=== PATIENT | female | born 1930 | race Hispanic/Latino ===

== ENCOUNTER 2017-05-15 14:36 | Emergency (ER) | payer MEDICARE ==
[2017-05-15 14:37] VITALS: PULSE 150
[2017-05-15 14:53] VITALS: TEMP 98.3; O2SAT 98; BMI 24.9
--- NOTE | 2017-05-15 15:14 | ED PDOC ---
Arrival/HPI - General Chief Complaint: GI Problem Time Seen by Provider: 05/15/17 14:46 Historian: Patient - History of Present Illness Narrative History of Present Illness (Text): 05/15/17 15:11 An 86 year old female, whose past medical history includes CAD w/ 3 cardiac stents, CABG, TIA, kidney stones, one renal stent, gall stones, and osteoporosis , presents to the emergency department with 6 day duration of nausea and vomiting with one episode of diarrhea 6 days ago. The patient states that she is currently asymptomatic. The patient denies fevers, chills, headache, dizziness, chest pain, shortness of breath, dyspnea on exertion, cough, sore throat, back pain, neck pain, urinary/bowel changes, trauma/injury, or any other complaints. PMD: Dr. Rodriguez Time/Duration: 1 week Symptom Onset: Sudden Symptom Course: Unchanged Activities at Onset: Rest, Light Context: Home Past Medical History - Provider Review Nursing Documentation Reviewed: Yes - Infectious Disease Hx of Infectious Diseases: None - Tetanus Immunization Tetanus Immunization: Unknown - Cardiac Hx Cardiac Disorders: Yes (TRIPLE BYPASS,CAROTID STENOSIS,CAD) Hx ID: Yes Hx Hypertension: Yes Other/Comment: Pacemaker/Defib - Pulmonary Hx Respiratory Disorders: Yes Hx Bronchitis: Yes - Neurological Hx Transient Ischemic Attacks (TIA): Yes - HEENT Hx HEENT Disorder: Yes Hx Cataracts: Yes (WITH LENS IMPLANT) - Renal Hx Kidney Stones: Yes - Endocrine/Metabolic Hx Endocrine Disorders: No - Hematological/Oncological Hx Blood Transfusions: No Hx Blood Transfusion Reaction: No - Integumentary Hx Dermatological Disorder: Yes Hx Melanoma: Yes (NOSE WITH SKIN GRAFT AND CHEEKS AND FOREHEAD SKIN CA) - Musculoskeletal/Rheumatological Hx Musculoskeletal Disorders: Yes Hx Osteoporosis: Yes - Gastrointestinal Hx Gastrointestinal Disorders: Yes Hx Gall Bladder Disease: Yes (GALLSTONES) - Genitourinary/Gynecological Other/Comment: stent in the kidney - Psychiatric Hx Psychophysiologic Disorder: No Hx Substance Use: No - Past Surgical History Past Surgical History: Non-Contributing - Surgical History Hx Coronary Stent: Yes (x3) Other/Comment: pacemaker/defib, kidney stent - Anesthesia Hx Anesthesia: Yes - Suicidal Assessment Feels Threatened In Home Enviroment: No Family/Social History - Physician Review Nursing Documentation Reviewed: Yes Family/Social History: No Known Family HX Smoking Status: Former Smoker Hx Alcohol Use: No Hx Substance Use: No Hx Substance Use Treatment: No Allergies/Home Meds Allergies/Adverse Reactions: Allergies heparin Allergy (Verified 05/15/17 14:44) vaginal bleed, chills Home Medications: Home Meds Medication Instructions Recorded Confirmed Aspirin [Ecotrin] 81 mg PO DAILY 06/07/17 06/07/17 Clopidogrel [Plavix] 75 mg PO DAILY 06/07/17 06/07/17 Ezetimibe [Zetia] 10 mg PO DAILY 06/07/17 06/07/17 Isosorbide Mononitrate [Imdur] 60 mg PO DAILY 06/07/17 06/07/17 Losartan Potassium 50 mg PO DAILY 06/07/17 06/07/17 Metoprolol Tartrate [Lopressor] 25 mg PO TID 06/07/17 06/07/17 Simvastatin [Zocor] 40 mg PO DAILY 06/07/17 06/07/17 Ursodiol [Actigall] 300 mg PO BID 06/07/17 06/07/17 Review of Systems - Physician Review All systems were reviewed & negative as marked: Yes - Review of Systems Constitutional: absent: Fevers, Night Sweats ENT: absent: Sore Throat Respiratory: absent: SOB, Cough Cardiovascular: absent: Chest Pain, ALLEN Gastrointestinal: Abdominal Pain, Diarrhea, Nausea, Vomiting. absent: Stool Changes Genitourinary Female: absent: Urine Output Changes Musculoskeletal: absent: Back Pain, Neck Pain Neurological: absent: Headache, Dizziness Physical Exam Vital Signs Reviewed: Yes Vital Signs Temp Pulse Resp BP Pulse Ox 05/15/17 17:44 76 18 106/49 L 98 05/15/17 14:42 98.3 F 84 17 122/65 98 Temperature: Afebrile Blood Pressure: Normal Pulse: Regular Respiratory Rate: Normal Appearance: Positive for: Well-Appearing, Non-Toxic, Comfortable Pain Distress: None Mental Status: Positive for: Alert and Oriented X 3 - Systems Exam Head: Present: Atraumatic, Normocephalic Pupils: Present: PERRL Extroacular Muscles: Present: EOMI Conjunctiva: Present: Normal Mouth: Present: Moist Mucous Membranes Neck: Present: Normal Range of Motion Respiratory/Chest: Present: Clear to Auscultation, Good Air Exchange. No: Respiratory Distress, Accessory Muscle Use Cardiovascular: Present: Regular Rate and Rhythm, Normal S1, S2. No: Murmurs Abdomen: Present: Tenderness (Epigastric tenderness). No: Normal Bowel Sounds ( Increased bowel sounds) Back: Present: Normal Inspection Upper Extremity: Present: Normal Inspection. No: Cyanosis, Edema Lower Extremity: Present: Normal Inspection. No: Edema Neurological: Present: GCS=15, CN II-XII Intact, Speech Normal Skin: Present: Warm, Dry, Normal Color. No: Rashes Psychiatric: Present: Alert, Oriented x 3, Normal Insight, Normal Concentration Medical Decision Making ED Course and Treatment: 05/15/17 15:14 Impression: An 86 year old female presents to the emergency department with 6 day duration epigastric abdominal pain, nausea, vomiting, and one episode of diarrhea. Plan: -- Abdomen/ Pelvis CT -- EKG -- Labs -- Zofran and Protonix -- Reassess and disposition Prior Visits: Notes and results from previous visits were reviewed. On 05/31/16 patient came in complaining of back pain. Patient was discharged home and advised to follow up with her PMD. Progress Notes: EKG: Ordered, reviewed, and independently interpreted the EKG. Rate : 85 BPM Rhythm : NSR Interpretation : LBBB. RBBB, ST normal, T- waves normal. CT Abdomen and Pelvis without intravenous contrast Dictator : DR. Lou, Júnior BRADLEY Report Date : 05/15/2017 16:36:27 IMPRESSION: No acute findings related to/accounting for the clinical presentation. Cholelithiasis without CT evidence of acute cholecystitis. No significant interval change compared to the prior examination(s). 05/15/17 17:20: Patient tolerating oral drink/food. - Lab Interpretations Lab Results: 05/15/17 16:05 05/15/17 16:05 Lab Results 05/15/17 16:05: Sodium 143, Potassium 4.2, Chloride 106, Carbon Dioxide 27, Anion Gap 14, BUN 26 H, Creatinine 1.0, Est GFR ( Amer) > 60, Est GFR ( Non-Af Amer) 52, Random Glucose 119 H, Calcium 9.0, Total Bilirubin 0.9, AST 32 , ALT 28, Alkaline Phosphatase 69, Troponin I 0.02, Total Protein 7.0, Albumin 4.1, Globulin 2.9, Albumin/Globulin Ratio 1.4, Lipase 58 05/15/17 16:05: PT 12.3, INR 1.13 H, APTT 27.1 05/15/17 16:05: WBC 2.5 L* D, RBC 3.92, Hgb 11.4 L, Hct 35.3 L, MCV 90.1, MCH 29.1, MCHC 32.3, RDW 13.4, Plt Count 151, MPV 10.9, Gran % 68.4 H, Lymph % (Auto ) 14.2 L, [place] % (Auto) 15.4 H, Eos % (Auto) 1.6, Baso % (Auto) 0.4, Gran # 1.73 , Lymph # 0.4 L, [place] # 0.4, Eos # 0.0, Baso # 0.01 I have reviewed the lab results: Yes - RAD Interpretation Radiology Orders: 05/15/17 15:11 ABD & PELVIS W/O PO OR IV CONT [CT] Stat - EKG Interpretation Interpreted by ED Physician: Yes Type: 12 lead EKG - Medication Orders Current Medication Orders: Discontinued Medications Ondansetron HCl (Zofran Inj) 4 mg IVP STAT STA Stop: 05/15/17 15:10 Last Admin: 05/15/17 16:06 Dose: 4 mg IVP Administration Document 05/15/17 16:06 MR (Rec: 05/15/17 16:06 MR [id number]) Charges for Administration # of IVP Administrations 1 Pantoprazole Sodium (Protonix Inj) 40 mg IVP STAT STA Stop: 05/15/17 15:10 Last Admin: 05/15/17 16:06 Dose: 40 mg IVP Administration Document 05/15/17 16:06 MR (Rec: 05/15/17 16:07 [id number]) Charges for Administration # of IVP Administrations 1 - Scribe Statement The provider has reviewed the documentation as recorded by the Scribe Kiah Fajardo Provider Scribe Attestation: All medical record entries made by the Scribe were at my direction and personally dictated by me. I have reviewed the chart and agree that the record accurately reflects my personal performance of the history, physical exam, medical decision making, and the department course for this patient. I have also personally directed, reviewed, and agree with the discharge instructions and disposition. Disposition/Present on Arrival - Present on Arrival Any Indicators Present on Arrival: No History of DVT/PE: No History of Uncontrolled Diabetes: No Urinary Catheter: No History of Decub. Ulcer: No History Surgical Site Infection Following: None - Disposition Have Diagnosis and Disposition been Completed?: Yes Diagnosis: Biliary colic Disposition: HOME/ ROUTINE Disposition Time: 17:56 Condition: IMPROVED Discharge Instructions (ExitCare): Biliary Colic (ED) Referrals: Jai Rodriguez MD [Family Provider] - Follow up with primary Forms: [employer] (Congolese)
[2017-05-15 16:22] LABS: BASO # 0.01 K/mm3 (0.0-2.0); BASO % 0.4 % (0.0-3.0); EOS % 1.6 % (1.5-5.0); GRAN # 1.73 (1.4-6.5); GRAN % 68.4 % (50.0-68.0); HEMATOCRIT 35.3 % (36.0-48.0); LYMPH # 0.4 (1.2-3.4); LYMPH % 14.2 % (22.0-35.0); MEAN CELL VOLUME 90.1 fl (80.0-105.0); MEAN CORPUSCULAR HEMOGLOBIN 29.1 pg (25.0-35.0); MEAN CORPUSCULAR HGB CONC 32.3 g/dl (31.0-37.0); MEAN PLATELET VOLUME 10.9 fl (7.0-11.0); MONO # 0.4 (0.1-0.6); MONO % 15.4 % (1.0-6.0); RED CELL DISTRIBUTION WIDTH 13.4 % (11.5-14.5)
[2017-05-15 16:29] LABS: ALB/GLOB RATIO 1.4 (1.1-1.8); ALKALINE PHOSPHATASE 69 U/L (38-126); ALT/SGPT 28 U/L (7-56); AST/SGOT 32 U/L (14-36); BILIRUBIN,TOTAL 0.9 mg/dL (0.2-1.3); BLOOD UREA NITROGEN 26 mg/dL (7-21); CARBON DIOXIDE 27 mmol/L (21-33); CHLORIDE 106 mmol/L (98-107); GFR AFRICAN-AMERICAN > 60; GLUCOSE,RANDOM 119 mg/dL (70-110); LIPASE 58 U/L (23-300); POTASSIUM 4.2 mmol/L (3.6-5.0); SODIUM 143 mmol/L (132-148)
[2017-05-15 16:32] LABS: WHITE BLOOD COUNT 2.5 10^3/ul (4.5-11.0)
[2017-05-15 16:34] LABS: INR 1.13 (0.93-1.08); PARTIAL THROMBOPLASTIN TIME 27.1 Seconds (25.1-36.5)
--- NOTE | 2017-05-15 16:38 | CT ---
PROCEDURE: CT Abdomen and Pelvis without intravenous contrast HISTORY: Obstruction COMPARISON: 06/20/2015 TECHNIQUE: Unenhanced study. Neither oral nor intravenous contrast administered. Radiation dose: Total exam DLP = 436.71 mGy-cm. This CT exam was performed using one or more of the following dose reduction techniques: Automated exposure control, adjustment of the mA and/or kV according to patient size, and/or use of iterative reconstruction technique. FINDINGS: LOWER THORAX: Mild interstitial lung disease, chronic in unchanged compared to the prior study. LIVER: Unremarkable. No gross lesion or ductal dilatation. GALLBLADDER AND BILE DUCTS: UnremarkableCholelithiasis without CT evidence of acute cholecystitis. Similar findings identified previously. All. PANCREAS: Unremarkable. No gross lesion or ductal dilatation. SPLEEN: Unremarkable. ADRENALS: Unremarkable. No mass. KIDNEYS AND URETERS: Unremarkable. No hydronephrosis. No solid mass. VASCULATURE: Unremarkable. No aortic aneurysm. BOWEL: Unremarkable. No obstruction. No gross mural thickening. APPENDIX: Unremarkable. Normal appendix. PERITONEUM: Unremarkable. No free fluid. No free air. LYMPH NODES: Unremarkable. No enlarged lymph nodes. BLADDER: Unremarkable. REPRODUCTIVE: Unremarkable. BONES: No acute fracture. Stable fracture deformity T12 vertebral body. OTHER FINDINGS: None. IMPRESSION: No acute findings related to/accounting for the clinical presentation. Cholelithiasis without CT evidence of acute cholecystitis. No significant interval change compared to the prior examination(s).
[2017-05-15 16:39] LABS: TROPONIN I 0.02 ng/mL
[2017-05-15 18:52] VITALS: BP 106/49; PULSE 76; RESP 18
--- NOTE | 2017-05-16 22:19 | CARD ---
APPROVED REPORT EKG Measurement Heart [id number] SD [id number] [id number] <Conclusion> Normal sinus rhythm Left axis deviation Incomplete left bundle branch block Abnormal ECG
== END 2017-05-15 17:56 | disposition home or self-care (01) ==
LOC: ED 14:36
DX: K80.50 Calculus of bile duct without cholangitis or cholecystitis without obstruction (principal); I10 Essential (primary) hypertension; I25.2 Old myocardial infarction; Z87.891 Personal history of nicotine dependence
CPT/HCPCS: 74176; 80053; 83690; 84484; 85025; 85610; 85730; 93005; 96374; 96375; 99284; C9113; J2405

== ENCOUNTER 2017-06-24 19:09 | Inpatient (IN) | payer MEDICARE ==
[2017-06-24 19:10] VITALS: PULSE 150
[2017-06-24 19:44] VITALS: BMI 22.8
--- NOTE | 2017-06-24 19:55 | ED PDOC ---
Arrival/HPI - General Chief Complaint: Trauma Time Seen by Provider: 06/24/17 19:26 Historian: Patient - History of Present Illness Narrative History of Present Illness (Text): 06/24/17 19:45 Grace Vu is an 86 year old female, whose past medical history includes CAD w/ 3 cardiac stents, CABG, TIA, kidney stones, one renal stent, gall stones, and osteoporosis, presents to the Emergency department s/p fall from chair prior to arrival. Patient informs lightheadedness and dizziness prior to fall. Patient presents with a 1 cm laceration on her chin and mild bruise on her right elbow. Patient informs mild discomfort to the areas. Patient denies pain to her elbow, pain to any other extremities, loss of consciousness, chest pain, shortness of breath, nausea, vomiting, fever, chills or any other complaints,. Time/Duration: Prior to Arrival Symptom Onset: Gradual Symptom Course: Unchanged Activities at Onset: Light Context: Home Past Medical History - Provider Review Nursing Documentation Reviewed: Yes - Infectious Disease Hx of Infectious Diseases: None - Tetanus Immunization Tetanus Immunization: Unknown - Cardiac Hx Cardiac Disorders: Yes (TRIPLE BYPASS,CAROTID STENOSIS,CAD) Hx Cardiac Arrhythmia: Yes Hx CT: Yes Hx Hypertension: Yes Other/Comment: Pacemaker/Defib - Pulmonary Hx Respiratory Disorders: Yes Hx Bronchitis: Yes - Neurological Hx Transient Ischemic Attacks (TIA): Yes - HEENT Hx HEENT Disorder: Yes Hx Cataracts: Yes (WITH LENS IMPLANT) - Renal Hx Kidney Stones: Yes - Endocrine/Metabolic Hx Endocrine Disorders: No - Hematological/Oncological Hx Blood Transfusions: No Hx Blood Transfusion Reaction: No - Integumentary Hx Dermatological Disorder: Yes Hx Melanoma: Yes (NOSE WITH SKIN GRAFT AND CHEEKS AND FOREHEAD SKIN CA) - Musculoskeletal/Rheumatological Hx Musculoskeletal Disorders: Yes Hx Osteoporosis: Yes - Gastrointestinal Hx Gastrointestinal Disorders: Yes Hx Gall Bladder Disease: Yes (GALLSTONES) - Genitourinary/Gynecological Other/Comment: stent in the kidney - Psychiatric Hx Psychophysiologic Disorder: No Hx Substance Use: No - Past Surgical History Past Surgical History: Non-Contributing - Surgical History Hx Coronary Stent: Yes (x3) Other/Comment: pacemaker/defib, kidney stent - Anesthesia Hx Anesthesia: Yes - Suicidal Assessment Feels Threatened In Home Enviroment: No Family/Social History - Physician Review Nursing Documentation Reviewed: Yes Family/Social History: Unknown Family HX Smoking Status: Former Smoker Hx Alcohol Use: No Hx Substance Use: No Hx Substance Use Treatment: No Allergies/Home Meds Allergies/Adverse Reactions: Allergies heparin Allergy (Verified 05/15/17 14:44) vaginal bleed, chills Home Medications: Home Meds Medication Instructions Recorded Confirmed Aspirin [Ecotrin] 81 mg PO DAILY 06/07/17 06/24/17 Clopidogrel [Plavix] 75 mg PO DAILY 06/07/17 06/24/17 Ezetimibe [Zetia] 10 mg PO DAILY 06/07/17 06/24/17 Isosorbide Mononitrate [Imdur] 60 mg PO DAILY 06/07/17 06/24/17 Losartan Potassium 50 mg PO DAILY 06/07/17 06/24/17 Metoprolol Tartrate [Lopressor] 25 mg PO TID 06/07/17 06/24/17 Simvastatin [Zocor] 40 mg PO DAILY 06/07/17 06/24/17 Ursodiol [Actigall] 300 mg PO BID 06/07/17 06/24/17 Review of Systems - Physician Review All systems were reviewed & negative as marked: Yes - Review of Systems Constitutional: Other (laceration on chin. mild bruise on right elbow. ). absent: Fevers, Night Sweats Eyes: Normal ENT: Normal Respiratory: Normal. absent: SOB Cardiovascular: Normal. absent: Chest Pain Gastrointestinal: Normal Genitourinary Female: Normal Musculoskeletal: Normal Skin: Normal Neurological: Dizziness (prior to fall ) Endocrine: Normal Hemo/Lymphatic: Normal Psychiatric: Normal Physical Exam Vital Signs Reviewed: Yes Vital Signs Temp Pulse Resp BP Pulse Ox 06/24/17 19:44 97.5 F L 121 H 16 93/58 L 95 Temperature: Afebrile Blood Pressure: Hypotensive Pulse: Tachycardic Respiratory Rate: Normal Appearance: Positive for: Well-Appearing, Non-Toxic, Comfortable Pain Distress: None Mental Status: Positive for: Alert and Oriented X 3 - Systems Exam Head: Present: Atraumatic, Normocephalic Pupils: Present: PERRL Extroacular Muscles: Present: EOMI Conjunctiva: Present: Normal Mouth: Present: Moist Mucous Membranes Neck: Present: Normal Range of Motion Respiratory/Chest: Present: Clear to Auscultation, Good Air Exchange. No: Respiratory Distress, Accessory Muscle Use Cardiovascular: Present: Regular Rate and Rhythm, Normal S1, S2. No: Murmurs Abdomen: Present: Normal Bowel Sounds. No: Tenderness, Distention, Peritoneal Signs Back: Present: Normal Inspection Upper Extremity: Present: Other (Mild bruising on right elbow). No: Edema Lower Extremity: Present: Normal Inspection. No: Edema Neurological: Present: GCS=15, CN II-XII Intact, Speech Normal Skin: Present: Warm, Dry, Normal Color, Laceration (1 cm laceration on chin s/p fall ). No: Rashes Psychiatric: Present: Alert, Oriented x 3, Normal Insight, Normal Concentration Medical Decision Making ED Course and Treatment: 06/24/17 19:45 Impression: 86 year old female presents to the Emergency department with 1 cm laceration on chin s/p fall. Plan: --CT head w/o contrast --EKG --Labs --Chest X-ray --Urinalysis -- Reassess and disposition 06/24/17 20:45 EKG: Ordered, reviewed, and independently interpreted the EKG. Rate : 90 BPM Rhythm : NSR Interpretation : No ST-segment elevations or depressions, no T-wave inversions, normal intervals. 06/24/17 20:40 CT of head w/o contrast reviewed by radiologist, shows: Brain: [id number] atrophy. No intracranial hemorrhage. No mass. Few scattered parenchymal calcifications. Minimal decreased attenuation within periventricular white matter. 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 No definite edema. Ventricles: No hydrocephalus. Bones/joints: No acute fracture. Soft tissues: Unremarkable. Vasculature: Atherosclerotic disease of intracranial arteries. Sinuses: Scattered minimal to mild mucosal thickening. Small RIGHT maxillary retention cyst. Mastoid air cells: No mastoid effusion. Orbits: Unremarkable as visualized. IMPRESSION: 1. Nonspecific white matter changes. Acute infarction may be CT occult within first 24 hours. If a focal deficit persists, consider followup CT or MRI for further evaluation. 2. Incidental/non-acute findings are described above. 06/24/17 20:40 Laceration repair plan discussed with patient. Patient denies suture and requests dermaband for the repair. Performed by the emergency provider Location: right lower chin Length: 1 cm Description: no foreign bodies Distal CMS: Normal. No deficits. Neurovascularly intact. Preparation: The wound was cleaned with NS and [place]. The area was prepped and draped in the usual sterile fashion. Exploration: The wound was explored and no foreign bodies were found. Procedure: The wound was closed with dermaband as requested by patient. Post-Procedure: Good closure and hemostasis. The patient tolerated the procedure well and there were no complications. CSM remains intact. 06/24/17 21:[address] Escobar at bedside in Emergency department. Requires Lovenax to be given to patient. - Lab Interpretations Lab Results: 06/24/17 20:07 06/24/17 20:07 Lab Results 06/24/17 20:07: Sodium 138, Potassium 4.1, Chloride 103, Carbon Dioxide 22, Anion Gap 17, BUN 28 H, Creatinine 1.4 H, Est GFR ( Amer) 43, Est GFR ( Non-Af Amer) 35, Random Glucose 152 H, Calcium 9.8, Magnesium 1.4 L, Total Bilirubin 0.6, AST 35, ALT 39, Alkaline Phosphatase 88, Lactate Dehydrogenase 729 H, Total Creatine Kinase 85, Troponin I 0.03 D, Total Protein 7.0, Albumin 4.1, Globulin 2.9, Albumin/Globulin Ratio 1.4 06/24/17 20:07: PT 11.8, INR 1.08, APTT 27.7 06/24/17 20:07: WBC 6.8 D, RBC 3.67, Hgb 10.7 L, Hct 32.5 L, MCV 88.6, MCH 29.2 , MCHC 32.9, RDW 13.1, Plt Count 168, MPV 10.7, Gran % 77.7 H, Lymph % (Auto) 11.7 L, [place] % (Auto) 8.1 H, Eos % (Auto) 2.2, Baso % (Auto) 0.3, Gran # 5.27, Lymph # 0.8 L, [place] # 0.6, Eos # 0.2, Baso # 0.02 I have reviewed the lab results: Yes - RAD Interpretation Radiology Orders: 06/24/17 19:47 HEAD W/O CONTRAST [CT] Stat CHEST PORTABLE [RAD] Stat Photo Finish Photographer: Radiologist - EKG Interpretation Interpreted by ED Physician: Yes Type: 12 lead EKG - Medication Orders Current Medication Orders: Discontinued Medications Enoxaparin Sodium (Lovenox) 60 mg SC STAT STA PRN Reason: Protocol Stop: 06/24/17 20:58 - Scribe Statement The provider has reviewed the documentation as recorded by the Scribe Thierry Edwards. All medical record entries made by the Scribe were at my direction and personally dictated by me. I have reviewed the chart and agree that the record accurately reflects my personal performance of the history, physical exam, medical decision making, and the department course for this patient. I have also personally directed, reviewed, and agree with the discharge instructions and disposition. Disposition/Present on Arrival - Present on Arrival History of DVT/PE: No History of Uncontrolled Diabetes: No Urinary Catheter: No History of Decub. Ulcer: No History Surgical Site Infection Following: None - Disposition Forms: [employer] (Armenian)
[2017-06-24 20:18] LABS: BASO # 0.02 K/mm3 (0.0-2.0); BASO % 0.3 % (0.0-3.0); EOS # 0.2 (0.0-0.7); EOS % 2.2 % (1.5-5.0); GRAN # 5.27 (1.4-6.5); GRAN % 77.7 % (50.0-68.0); HEMATOCRIT 32.5 % (36.0-48.0); LYMPH # 0.8 (1.2-3.4); LYMPH % 11.7 % (22.0-35.0); MEAN CELL VOLUME 88.6 fl (80.0-105.0); MEAN CORPUSCULAR HEMOGLOBIN 29.2 pg (25.0-35.0); MEAN CORPUSCULAR HGB CONC 32.9 g/dl (31.0-37.0); MEAN PLATELET VOLUME 10.7 fl (7.0-11.0); MONO # 0.6 (0.1-0.6); MONO % 8.1 % (1.0-6.0); RED CELL DISTRIBUTION WIDTH 13.1 % (11.5-14.5); WHITE BLOOD COUNT 6.8 10^3/ul (4.5-11.0)
[2017-06-24 20:41] LABS: ALB/GLOB RATIO 1.4 (1.1-1.8); BILIRUBIN,TOTAL 0.6 mg/dL (0.2-1.3); CALCIUM 9.8 mg/dL (8.4-10.5); MAGNESIUM 1.4 mg/dL (1.7-2.2); POTASSIUM 4.1 mmol/L (3.6-5.0); TROPONIN I 0.03 ng/mL
--- NOTE | 2017-06-24 20:42 | CT ---
EXAM: CT Head Without Intravenous Contrast CLINICAL HISTORY: 86 years old, female; Signs and symptoms; Dizziness; Additional info: Dizzy/fall TECHNIQUE: Axial computed tomography images of the head/brain without intravenous contrast. All CT scans at this facility use one or more dose reduction techniques, viz.: automated exposure control; ma/kV adjustment per patient size (including targeted exams where dose is matched to indication; i.e. head); or iterative reconstruction technique. COMPARISON: No relevant prior studies available. FINDINGS: Brain: [id number] atrophy. No intracranial hemorrhage. No mass. Few scattered parenchymal calcifications. Minimal decreased attenuation within periventricular white matter. 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 No definite edema. Ventricles: No hydrocephalus. Bones/joints: No acute fracture. Soft tissues: Unremarkable. Vasculature: Atherosclerotic disease of intracranial arteries. Sinuses: Scattered minimal to mild mucosal thickening. Small RIGHT maxillary retention cyst. Mastoid air cells: No mastoid effusion. Orbits: Unremarkable as visualized. IMPRESSION: 1. Nonspecific white matter changes. Acute infarction may be CT occult within first 24 hours. If a focal deficit persists, consider followup CT or MRI for further evaluation. 2. Incidental/non-acute findings are described above.
[2017-06-24 20:44] LABS: INR 1.08 (0.93-1.08); PARTIAL THROMBOPLASTIN TIME 27.7 Seconds (25.1-36.5)
[2017-06-24] MEDS ORDERED: Enoxaparin 60 mg Syringe SC STA (20:57)
[2017-06-24 22:19] LABS: URINE BILIRUBIN NEGATIVE (NEGATIVE); URINE BLOOD TRACE-LYSED (NEGATIVE); URINE GLUCOSE (UA) NEGATIVE (NEGATIVE); URINE KETONE NEGATIVE (NEGATIVE); URINE LEUKOCYTE ESTERASE MODERATE Leu/uL (NEGATIVE); URINE PROTEIN NEGATIVE mg/dL (<30 mg/dL); URINE UROBILINOGEN 0.2 E.U./dL (<1 E.U./dL)
[2017-06-24] MEDS ORDERED: Magnesium Oxide 400 mg Tab UD PO ONE (22:22)
[2017-06-24 22:24] LABS: URINE APPEARANCE CLEAR (CLEAR); URINE COLOR YELLOW (YELLOW)
[2017-06-24 22:29] LABS: URINE WBC 15 - 20 /hpf (0-6)
[2017-06-24 22:30] LABS: URINE AMORPHOUS SEDIMENT FEW; URINE BACTERIA MANY (NEG)
--- NOTE | 2017-06-24 22:45 | CP.PCM.HP ---
<Андрей Becker - Last Filed: 06/25/17 01:49> History of Present Illness - History of Present Illness History of Present Illness: 86 year old female with a past medical history that includes coronary artery disease (stats post 3 cardiac stents), CABG, TIA, nephrolithiasis,sinus sick syndrome, dyslipidemia, renal artery stenosis, gallstones, osteroporosis and carotid artery stenosis( left) who comes in post fall earlier today. The patient reports getting ready for [employer] earlier today and when she went for her bag she felt lightheaded and dizzy and she fell and hit her chin on the chair and scraped her right elbow. The patient was recently had a cardiac workup done with her Commercial Sewing Instructor Dr. Rabago. The patient denies losing consciousness, chest pain, nausea, vomiting, fevers, chills, changes in vision, sick contacts, or any other complaints. Primary medical doctor: Dr. Sosa Commercial Sewing Instructor: Dr. Rabago Past medical history: See HPI Past surgical history:CABG, carotid artery stent placement, Cardiac stent placment (3) Allergies: Heparin Family history: Hypertension in the family. Social history: Former smoker in the past. Denies alcohol or illicit drug use. Performs ADL's AND IDL's with the assistance of a cane. Present on Admission - Present on Admission Any Indicators Present on Admission: No Review of Systems - Constitutional Constitutional: As Per HPI - EENT Eyes: As Per HPI Ears: As Per HPI Nose/Mouth/Throat: As Per HPI - Breasts Breasts: As Per HPI - Cardiovascular Cardiovascular: As Per HPI - Respiratory Respiratory: As Per HPI - Gastrointestinal Gastrointestinal: As Per HPI - Genitourinary Genitourinary: As Per HPI - Musculoskeletal Musculoskeletal: As Per HPI - Integumentary Integumentary: As Per HPI - Neurological Neurological: As Per HPI - Psychiatric Psychiatric: As Per HPI - Endocrine Endocrine: As Per HPI Past Patient History - Infectious Disease Hx of Infectious Diseases: None - Tetanus Immunizations Tetanus Immunization: Unknown - Past Social History Smoking Status: Former Smoker - CARDIAC Hx Cardiac Disorders: Yes (TRIPLE BYPASS,CAROTID STENOSIS,CAD) Hx Cardia Arrhythmia: Yes Hx Heart Attack: Yes Hx Hypertension: Yes Other/Comment: Pacemaker/Defib - PULMONARY Hx Respiratory Disorders: Yes Hx Bronchitis: Yes - NEUROLOGICAL Hx Transient Ischemic Attacks (TIA): Yes - HEENT Hx HEENT Problems: Yes Hx Cataracts: Yes (WITH LENS IMPLANT) - RENAL Hx Kidney Stones: Yes - ENDOCRINE/METABOLIC Hx Endocrine Disorders: No - HEMATOLOGICAL/ONCOLOGICAL Hx Blood Transfusions: No Hx Blood Transfusion Reaction: No - INTEGUMENTARY Hx Dermatological Problems: Yes Hx Melanoma: Yes (NOSE WITH SKIN GRAFT AND CHEEKS AND FOREHEAD SKIN CA) - MUSCULOSKELETAL/RHEUMATOLOGICAL Hx Musculoskeletal Disorders: Yes Hx Osteoporosis: Yes - GASTROINTESTINAL Hx Gastrointestinal Disorders: Yes Hx Gall Bladder Disease: Yes (GALLSTONES) - GENITOURINARY/GYNECOLOGICAL Other/Comment: stent in the kidney - PSYCHIATRIC Hx Psychophysiologic Disorder: No Hx Substance Use: No - SURGICAL HISTORY Hx Coronary Stent: Yes (x3) Other/Comment: pacemaker/defib, kidney stent - ANESTHESIA Hx Anesthesia: Yes Meds Allergies/Adverse Reactions: Allergies Allergy/AdvReac Type Severity Reaction Status Date / Time heparin Allergy vaginal Verified 05/15/17 14:44 bleed, chills Physical Exam - Head Exam Head Exam: ATRAUMATIC, NORMAL INSPECTION, NORMOCEPHALIC Additional comments: chin abrasion - Eye Exam Eye Exam: EOMI, Normal appearance, PERRL. absent: Periorbital tenderness Pupil Exam: NORMAL ACCOMODATION, PERRL. absent: Irregular, Mydriatic, Unequal - ENT Exam ENT Exam: Mucous Membranes Moist, Normal Oropharynx - Neck Exam Neck exam: Positive for: Normal Inspection. Negative for: Lymphadenopathy, Thyromegaly - Respiratory Exam Respiratory Exam: Clear to Auscultation Bilateral, NORMAL BREATHING PATTERN. absent: Chest Wall Tenderness, Prolonged Expiratory Phase, Respiratory Distress - Cardiovascular Exam Cardiovascular Exam: REGULAR RHYTHM, +S1, +S2 - GI/Abdominal Exam GI & Abdominal Exam: Normal Bowel Sounds, Soft. absent: Distended, Hypoactive Bowel Sounds, Organomegaly - Extremities Exam Extremities exam: Positive for: full ROM, normal inspection. Negative for: joint swelling, pedal edema, tenderness Additional comments: right elbow abrasion - Back Exam Back exam: NORMAL INSPECTION. absent: CVA tenderness (L), CVA tenderness (R), paraspinal tenderness - Neurological Exam Neurological exam: Alert, CN II-XII Intact, Oriented x3 - Psychiatric Exam Psychiatric exam: Normal Affect, Normal Mood - Skin Skin Exam: Dry, Normal Color, Warm Results - Vital Signs Recent Vital Signs: Last Vital Signs Temp 98 F 06/24/17 22:09 Pulse 95 H 12/15/17 22:09 Resp 16 06/24/17 22:09 BP 120/88 06/24/17 22:09 Pulse Ox 97 06/24/17 22:09 - Labs Result Diagrams: 06/24/17 20:07 06/24/17 20:07 Labs: Laboratory Results - last 24 hr 06/24/17 22:07 Urine Color Yellow Urine Appearance Clear Urine pH 6.0 Ur Specific [place] <= 1.005 Urine Protein Negative Urine Glucose (UA) Negative Urine Ketones Negative Urine Blood Trace-lysed H Urine Nitrate Negative Urine Bilirubin Negative Urine Urobilinogen 0.2 Ur Leukocyte Esterase Moderate H Urine RBC 2 - 5 Urine WBC 15 - 20 Ur Epithelial Cells 4 - 5 Amorphous Sediment Few Urine Bacteria Many Assessment & Plan - Assessment and Plan (Free Text) Assessment: 86 year old female with a past medical history that includes coronary artery disease (stats post 3 cardiac stents), CABG, TIA, nephrolithiasis,sinus sick syndrome, dyslipidemia, renal artery stenosis, gallstones, osteroporosis and carotid artery stenosis( left) who comes in post fall earlier today secondary to dizziness. Plan: 1. Dizziness -Patient in the emergency department was found to have atrial fibrillation with RVR however broke into a sinus rhythm shortly thereafter. -Patient recently had a cardiac workup done by her Commercial Sewing Instructor Dr. Rabago. -Last Echocardiogram done 06/07/17: Showed dilated and severely hypokinetic left ventricle, Ejection fraction of 27%, dilated left atrium, mild mitral regurgitation and tricuspid regurgitation, and moderate pulmonary hypertension. -Last pharmocological stress test done : Showed abnormal SPECT myocardial perfusion study, fixed, inferior, inferolateral, and basal anterolateral defects and mild anterior defects consistent with myocardial injury/infarct, severe left ventricle dysfunction with diffuse hypokinesis and paradoxical septal wall motion, findings similar to last study of 11/07/15. -Troponins ordered for the morning. Will follow up with results. -Orthostatics ordered. Will follow up with results. -Neurology consulted. Will follow up with results. -Cardiology consulted. Will follow up with results. 2.Hypetension -Patient's blood pressure in the 90's systolic. -Will hold bp medications today. Re-evaluate vitals and medications in the morning. 3.Dyslipidemia -Continue home medications. 4. Electrolye imbalance -Magnesium repleted. Will continue to monitor with serial CMP's. GI ppx -Protonix DVT ppx -SCD's <Júnior Hough S - Last Filed: 06/25/17 11:17> Results - Vital Signs Recent Vital Signs: Last Vital Signs Temp 98 F 06/25/17 06:00 Pulse 75 06/25/17 08:13 Resp 18 06/25/17 06:00 BP 136/71 06/25/17 08:13 Pulse Ox 100 06/25/17 06:00 - Labs Result Diagrams: 06/25/17 06:00 06/25/17 06:00 Labs: Laboratory Results - last 24 hr 06/24/17 06/25/17 06/25/17 22:07 06:00 06:00 WBC 4.9 D RBC 3.45 L Hgb 9.9 L Hct 30.5 L MCV 88.4 MCH 28.7 MCHC 32.5 RDW 13.2 Plt Count 154 MPV 10.5 Gran % 51.9 Lymph % (Auto) 29.7 [place] % (Auto) 12.5 H Eos % (Auto) 5.3 H Baso % (Auto) 0.6 Gran # 2.53 Lymph # 1.5 [place] # 0.6 Eos # 0.3 Baso # 0.03 Sodium 141 Potassium 4.1 Chloride 107 Carbon Dioxide 27 Anion Gap 12 BUN 23 H Creatinine 1.1 Est GFR ( Amer) 57 Est GFR (Non-Af Amer) 47 Random Glucose 88 Calcium 9.6 Total Bilirubin 0.4 AST 32 ALT 39 Alkaline Phosphatase 89 Troponin I 0.13 H* D Total Protein 6.3 Albumin 3.6 Globulin 2.8 Albumin/Globulin Ratio 1.3 Urine Color Yellow Urine Appearance Clear Urine pH 6.0 Ur Specific [place] <= 1.005 Urine Protein Negative Urine Glucose (UA) Negative Urine Ketones Negative Urine Blood Trace-lysed H Urine Nitrate Negative Urine Bilirubin Negative Urine Urobilinogen 0.2 Ur Leukocyte Esterase Moderate H Urine RBC 2 - 5 Urine WBC 15 - 20 Ur Epithelial Cells 4 - 5 Amorphous Sediment Few Urine Bacteria Many Assessment & Plan - Assessment and Plan (Free Text) Plan: discussed at length w/ resident went over meds labs tests orders and plans consults signed orders
--- NOTE | 2017-06-25 05:57 | CON ---
DATE: 06/24/2017 LOCATION: The patient is in emergency room. This consult is being done on behalf of Dr. Rabago, whom I am covering. REASON FOR CONSULTATION: Atrial fibrillation, history of coronary artery disease, history of cardiomyopathy. HISTORY OF PRESENT ILLNESS: The patient is an 86-year-old female with known case of coronary artery disease, status post coronary artery bypass surgery; cardiomyopathy, status post AICD insertion, admitted because at home she felt dizzy and she fell down. Denies any chest pain, palpitation, shortness of breath associated with this episode, after she fell down and then she felt slight nausea. The patient when came to the emergency room was in atrial fibrillation, then spontaneously converted to sinus rhythm without any medication. PAST MEDICAL HISTORY: Significant for AICD insertion, coronary artery disease, history of CABG, history of coronary angioplasty. PERSONAL HISTORY: Denies any smoking or drinking. Past history as mentioned, the patient has coronary artery disease, coronary artery bypass surgery, AICD insertion, cardiomyopathy, also has history of TIA, osteoporosis, gallstones, history of hypertension, also had history of ND in the past, history of cataract surgery with lens implant. MEDICATIONS: List of medications at home, Actigall 300 mg b.i.d., Zocor 40 daily, Lopressor 25 , Losartan 50 mg daily, isosorbide mononitrate 60 p.o. daily, Zetia 10 mg daily, Plavix 75 daily, Ecotrin 81 mg p.o. daily. REVIEW OF SYSTEMS: All the systems reviewed and positive as mentioned in the history, otherwise negative. PHYSICAL EXAMINATION: VITAL SIGNS: Blood pressure 120/88, respirations 16, pulse 95, and temperature 98. HEENT: Head is normocephalic. Eyes: Pupils normal. Conjunctivae slightly pale. NECK: JVP low. Carotid equal. THORAX: AP diameter normal. LUNGS: Clear, AICD insertion in the left upper chest. ABDOMEN: Soft, nontender. No organomegaly. EXTREMITIES: No clubbing. No cyanosis. LABORATORY DATA: WBC 6.8, hemoglobin 10.7, hematocrit 32.5, platelet 168. Sodium 138, potassium 4.1, BUN 28, creatinine 1.4. Troponin 0.03 which is negative. AST, ALT, total protein, and albumin normal. CT of the head, nonspecific white matter changes. EKG on admission showed atrial fibrillation with rapid rate, but spontaneously converted to sinus rhythm, then EKG showed regular sinus rhythm. Chest x-ray is clear. DIAGNOSES: Atrial fibrillation, converted to sinus rhythm spontaneously; coronary artery disease; history of coronary bypass surgery; cardiomyopathy; history of hypertension; history of transient ischemic attack in the past; history of kidney stones; gallstone; osteoporosis. PLAN: We will repeat troponin in the morning, also recheck electrolytes BUN in the morning, also we will check TSH. The patient while at home is on Lopressor 25 , we will increase it to 50 b.i.d.; Losartan 50 mg p.o. daily; isosorbide mononitrate 60 daily; Zetia 10 mg daily; Plavix 75 mg daily; aspirin 81 mg daily; Zocor 40 mg daily; Actigall 300 mg p.o. b.i.d. The patient had stress test on 06/07/2017 showed fixed defect, LV ejection fraction of 19%. Echo also done on 06/07/2017 showed ejection fraction of 28%, dilated LV, severe hypokinesis, mild MR, TR and AI, RVSP 48 mmHg, suggestive of mild pulmonary hypertension. Probably, the patient is having paroxysmal atrial fibrillation. We will start Eliquis 2.5 mg b.i.d., and we will follow. Florence Escobar MD
[2017-06-25] MEDS ORDERED: Magnesium Sulfate 2 GM in Sodium Chloride 0.9% 100 ML IVPB ONE (06:27)
[2017-06-25 07:35] LABS: BASO # 0.03 K/mm3 (0.0-2.0); BASO % 0.6 % (0.0-3.0); EOS # 0.3 (0.0-0.7); EOS % 5.3 % (1.5-5.0); GRAN # 2.53 (1.4-6.5); GRAN % 51.9 % (50.0-68.0); HEMATOCRIT 30.5 % (36.0-48.0); LYMPH # 1.5 (1.2-3.4); LYMPH % 29.7 % (22.0-35.0); MEAN CELL VOLUME 88.4 fl (80.0-105.0); MEAN CORPUSCULAR HEMOGLOBIN 28.7 pg (25.0-35.0); MEAN CORPUSCULAR HGB CONC 32.5 g/dl (31.0-37.0); MEAN PLATELET VOLUME 10.5 fl (7.0-11.0); MONO # 0.6 (0.1-0.6); MONO % 12.5 % (1.0-6.0); RED CELL DISTRIBUTION WIDTH 13.2 % (11.5-14.5); WHITE BLOOD COUNT 4.9 10^3/ul (4.5-11.0)
[2017-06-25 08:23] LABS: ALB/GLOB RATIO 1.3 (1.1-1.8); BILIRUBIN,TOTAL 0.4 mg/dL (0.2-1.3); CALCIUM 9.6 mg/dL (8.4-10.5); POTASSIUM 4.1 mmol/L (3.6-5.0); TOTAL PROTEIN 6.3 g/dL (5.8-8.3); TROPONIN I 0.13 ng/mL
--- NOTE | 2017-06-25 09:30 | CP.PCM.PN ---
<Avery Mckinney - Last Filed: 06/25/17 12:11> Subjective - Date & Time of Evaluation Date of Evaluation: 06/25/17 Time of Evaluation: 20:00 - Subjective Subjective: Medicine progress note: Pt seen and examined at bedside. No acute events overnight. Pt denies any dizziness at this time. Denies any chest pain or palpitations. 12 Point ROS performed and negative other than stated above. Objective - Vital Signs/Intake and Output Vital Signs (last 24 hours): Temp Pulse Resp BP Pulse Ox 98 F 75 18 136/71 100 06/25/17 06:00 06/25/17 08:13 06/25/17 06:00 06/25/17 08:13 06/25/17 06:00 Intake and Output: 06/25/17 06/25/17 06:59 18:59 Intake Total 180 Balance 180 - Medications Medications: Current Medications Acetaminophen (Tylenol 325mg Tab) 650 mg PO Q4 PRN PRN Reason: Pain, moderate (4-7) Last Admin: 06/25/17 00:42 Dose: 650 mg Apixaban (Eliquis) 2.5 mg PO BID [facility] PRN Reason: Protocol Atorvastatin Calcium (Lipitor) 20 mg PO DIN GERI Ezetimibe (Zetia) 10 mg PO DAILY [facility] Isosorbide Mononitrate (Imdur) 60 mg PO DAILY [facility] Metoprolol Tartrate (Lopressor) 50 mg PO BRKDIN [facility] Last Admin: 06/25/17 08:13 Dose: 50 mg - Labs Labs: 06/25/17 06:00 06/25/17 06:00 PT 11.8 SECONDS (9.4-12.5) 06/24/17 20:07 INR 1.08 (0.93-1.08) 06/24/17 20:07 APTT 27.7 Seconds (25.1-36.5) 06/24/17 20:07 - Constitutional Appears: No Acute Distress - Head Exam Head Exam: ATRAUMATIC, NORMOCEPHALIC - Eye Exam Eye Exam: EOMI, PERRL - ENT Exam ENT Exam: Mucous Membranes Moist - Respiratory Exam Respiratory Exam: Clear to Ausculation Bilateral. absent: Wheezes - Cardiovascular Exam Cardiovascular Exam: REGULAR RHYTHM, +S1, +S2 - GI/Abdominal Exam GI & Abdominal Exam: Soft, Normal Bowel Sounds - Extremities Exam Extremities Exam: absent: Calf Tenderness, Pedal Edema - Neurological Exam Neurological Exam: Alert, Awake, Oriented x3 - Psychiatric Exam Psychiatric exam: Normal Affect, Normal Mood - Skin Skin Exam: Dry, Intact, Warm Assessment and Plan - Assessment and Plan (Free Text) Assessment: 86 year old female with a past medical history that includes coronary artery disease (stats post 3 cardiac stents), CABG, TIA, nephrolithiasis,sinus sick syndrome, dyslipidemia, renal artery stenosis, gallstones, osteoporosis and carotid artery stenosis( left) who comes in post fall earlier today secondary to dizziness. Found to have elevated troponin. 1. Dizziness - possibly 2/2 Afib -In the ED pt had atrial fibrillation with RVR which broke into a sinus rhythm shortly thereafter. -Last Echocardiogram 06/07/17: Showed dilated and severely hypokinetic left ventricle, Ejection fraction of 27%, dilated left atrium, mild mitral regurgitation and tricuspid regurgitation, and moderate pulmonary hypertension. -Last stress test : Showed abnormal SPECT myocardial perfusion study, fixed, inferior, inferolateral, and basal anterolateral defects and mild anterior defects consistent with myocardial injury/infarct, severe left ventricle dysfunction with diffuse hypokinesis and paradoxical septal wall motion, findings similar to last study of 11/07/15. -f/u Troponins ordered for the morning - elevated at 0.13; Nursing staff called Dr Escobar (covering Dr Rabago service) which will evaluate. Stat EKG ordered -f/u Orthostatics -f/u Neurology consult for recs -f/u Cardiology consult for recs Increased metoprolol to 50mg BID and started on Eliquis 2. Elevated troponin - Troponins x 2 elevated at 0.13; Nursing staff called Dr Escobar (covering Dr Rabago service) which will evaluate - f/u trops x 3 - Stat EKG ordered - Cardiology consult for recs Increased metoprolol to 50mg BID and started on Eliquis 3.Hypertension -Hold HTN meds -Patient's blood pressure in the 90's systolic. 4.Dyslipidemia -Continue home Lipitor 5. Hypomagnesium -Mgsulfate 2gm x 1 ordered -will replete as needed GI ppx/ DVT ppx -Protonix -SCD's Case and plan was reviewed and discussed in detail with Dr Hough. <Júnior Hough - Last Filed: 06/25/17 12:20> Objective - Vital Signs/Intake and Output Vital Signs (last 24 hours): Temp Pulse Resp BP Pulse Ox 97.7 F 60 20 115/54 L 100 06/25/17 11:48 06/25/17 11:48 06/25/17 11:48 06/25/17 11:48 06/25/17 06:00 Intake and Output: 06/25/17 06/25/17 06:59 18:59 Intake Total 180 Balance 180 - Medications Medications: Current Medications Acetaminophen (Tylenol 325mg Tab) 650 mg PO Q4 PRN PRN Reason: Pain, moderate (4-7) Last Admin: 06/25/17 00:42 Dose: 650 mg Aspirin (Aspirin Chewable) 81 mg PO DAILY [facility] Last Admin: 06/25/17 12:03 Dose: 81 mg Atorvastatin Calcium (Lipitor) 20 mg PO DIN [facility] Clopidogrel Bisulfate (Plavix) 75 mg PO DAILY [facility] Last Admin: 06/25/17 12:03 Dose: 75 mg Ezetimibe (Zetia) 10 mg PO DAILY [facility] Last Admin: 06/25/17 12:03 Dose: 10 mg Enoxaparin Sodium (Lovenox) 60 mg SC Q12H [facility] PRN Reason: Protocol Stop: 06/26/17 20:00 Last Admin: 06/25/17 10:20 Dose: 60 mg Isosorbide Mononitrate (Imdur) 60 mg PO DAILY [facility] Last Admin: 06/25/17 10:21 Dose: 60 mg Metoprolol Tartrate (Lopressor) 50 mg PO BRKDIN [facility] Last Admin: 06/25/17 08:13 Dose: 50 mg Pantoprazole Sodium (Protonix Ec Tab) 40 mg PO 0600 [facility] Last Admin: 06/25/17 12:03 Dose: 40 mg - Labs Labs: 06/25/17 06:00 06/25/17 06:00 PT 11.8 SECONDS (9.4-12.5) 06/24/17 20:07 INR 1.08 (0.93-1.08) 06/24/17 20:07 APTT 27.7 Seconds (25.1-36.5) 06/24/17 20:07 Assessment and Plan - Assessment and Plan (Free Text) Plan: discussed w/ resident at length went over labs meds tests results orders plans reviewed
--- NOTE | 2017-06-25 10:18 | RAD ---
HISTORY: dizzy COMPARISON: 05/31/2016 FINDINGS: LUNGS: No active pulmonary disease. PLEURA: No significant pleural effusion identified, no pneumothorax apparent. CARDIOVASCULAR: Mild cardiomegaly. Dual lead pacemaker OSSEOUS STRUCTURES: No significant abnormalities. VISUALIZED UPPER ABDOMEN: Normal. OTHER FINDINGS: None. IMPRESSION: No active disease.
[2017-06-25] MEDS: Enoxaparin 60 mg Syringe SC SCH ×2 (10:20→22:46)
[2017-06-25] MEDS: Pantoprazole 40 mg EC Tab PO SCH (12:03)
--- NOTE | 2017-06-25 15:06 | CARD ---
APPROVED REPORT EKG Measurement Heart [id number] <Conclusion> Normal sinus rhythm Left axis deviation Nonspecific intraventricular block Nonspecific T wave abnormality Abnormal ECG
--- NOTE | 2017-06-25 15:13 | CARD ---
APPROVED REPORT EKG Measurement Heart [id number] <Conclusion> Poor data quality, interpretation may be adversely affected Normal sinus rhythm Left axis deviation Nonspecific intraventricular conduction delay Abnormal ECG
--- NOTE | 2017-06-25 15:15 | CARD ---
APPROVED REPORT EKG Measurement Heart [id number] <Conclusion> Demand pacemaker, interpretation is based on intrinsic rhythm Atrial fibrillation with rapid ventricular response Left axis deviation Nonspecific intraventricular conduction delay Nonspecific ST abnormality, probably digitalis effect Abnormal ECG
--- NOTE | 2017-06-25 18:47 | CON ---
DATE: 06/25/2017 CHIEF COMPLAINT: Dizziness. HISTORY OF PRESENT ILLNESS: This is an 86-year-old woman with history of coronary artery disease, status post 3 stents, CABG, TIA, nephrolithiasis, sick sinus syndrome, dyslipidemia, right carotid artery stenosis, osteoporosis, right carotid artery stent with left side totally occluded, who has reported of getting up status post fall after she was getting up to play game ready for [employer]. She went for her bag, when she fell lightheaded and dizzy and fell and hit her chin on the chair and she scraped the right elbow. Her CT head showed no acute intracranial abnormalities. Currently, she is no longer feeling dizziness, but her systolic and diastolic blood pressures were on the lower side. She is moving all extremities, no pronator drift seen. She is doing well. She is sitting up at the edge of the bed, talking to her . No acute events overnight. Diastolic blood pressure still on the lower side. She had mildly elevated troponin of 0.13. PAST MEDICAL HISTORY: History of coronary artery disease, status post stents, CABG, TIA, sick sinus syndrome, dyslipidemia, renal artery stenosis, gallstones, osteoporosis, left carotid occlusion with right carotid artery stent. REVIEW OF SYSTEMS: A 14-point review of systems is negative except as per the HPI. ALLERGIES: ALLERGIC TO HEPARIN. MEDICATIONS: Reviewed by nurse per reconciliation sheet. PHYSICAL EXAMINATION VITAL SIGNS: Temperature 97.7, pulse rate is 60, blood pressure 115/54, respiratory rate 20. GENERAL: Patient is seen up at the edge of the bed, in no acute distress. HEENT: Head is atraumatic and normocephalic. PERRLA. Extraocular muscles are intact. NECK: Supple. No JVD. No adenopathy noted. LUNGS: Clear to auscultation. No adventitious sounds. HEART: S1 and S2 normal. Regular rate and rhythm. No murmurs, rubs, or gallops. ABDOMEN: Soft, nontender and nondistended. Bowel sounds are present. EXTREMITIES: No clubbing. No cyanosis. Peripheral pulses are 2+ bilaterally. NEUROLOGIC: The patient is alert, oriented to person, place, month, and year. Speech is fluent without any errors. Cranial nerves II through XII are intact. Motor exam, moves all extremities equally. Toes are downgoing bilaterally. Sensory exam: Light touch, pinprick, proprioception, vibration intact. DTRs are 1+ throughout. Coordination of [id number] intact. Gait is slightly wide based. LABORATORY DATA: Sodium 141, potassium 4.1, chloride 107, carbon dioxide 27, BUN 23, creatinine 1.3, random glucose 88. ASSESSMENT AND PLAN: This is an 86-year-old woman with history of coronary artery disease, status post 3 cardiac stents, coronary artery bypass graft, transient ischemic attack, nephrolithiasis, sick sinus syndrome, dyslipidemia, renal artery stenosis, gallstones, osteoporosis, right carotid artery stent, and left carotid artery stenosis. Came in for status post fall after getting up too quickly and went to grab her bag when she fell and felt lightheaded. She was found to have systolic and diastolic low blood pressures. She had an echocardiogram, which was done on 06/07/2017, shows dilated severely hypokinetic left ventricle with ejection fraction of 27%, she has an AICD. At this time, dizziness is likely secondary to underlying cerebral hyperperfusion to the brain, superimposed on underlying deconditioned state. RECOMMENDATIONS: At this time recommend: 1. Keep systolic blood pressures between 120s to 130s and diastolics between 70s to 80s. 2. Avoid sudden drops in her blood pressure. 3. Continue with aspirin 81 and Plavix 75 mg and Lipitor 20 mg for stroke prevention. 4. Follow up with her elevated troponin's per cardiology. 5. PT/OT evaluation. 6. Orthostatic vital signs. Lobo Gutierrez MD
--- NOTE | 2017-06-25 18:59 | PN ---
DATE: 06/25/2017 The patient in Room 378, Bed 1. This followup note being done on behalf of covering. REASON FOR CONSULTATION: Followup atrial fibrillation, history of coronary artery disease, history of cardiomyopathy. SUBJECTIVE: The patient denies any chest pain, shortness of breath, or palpitation. The patient lying flat without any cardiac symptoms. PHYSICAL EXAMINATION GENERAL: Text. VITAL SIGNS: Blood pressure 115/54, respirations 20, pulse 60, temperature 97.7. HEENT: Head is normocephalic. Eyes, pupils normal. Conjunctivae slightly pale. CARDIOVASCULAR: S1 and S2. LUNGS: Sounds clear. ABDOMEN: Soft, nontender. No organomegaly. EXTREMITIES: No clubbing, no cyanosis. LABORATORY DATA: WBC 4.9, hemoglobin 9.9, hematocrit 30.5, platelet 154. Sodium 141, potassium 4.1, BUN 23, creatinine 1.1. Yesterday, BUN was 28, creatinine 1.4. Today, it showed improvement. Random glucose 88. AST and ALT normal. First troponin 0.03, second troponin 0.13, third troponin 0.09. Total protein and albumin normal. PT, INR, PTT normal. Chest x-ray, mild cardiomegaly. AICD leads seen. The patient had stress test on 06/07/2017 which showed fixed defect, LV ejection fraction 19%. Echo on 06/07/2017 showed ejection fraction of 28%, dilated LV, severe hypokinesis, mild MR, TR, and AI. RVSP 48 mm/Hg suggestive of mild pulmonary hypertension. DIAGNOSIS: Episode of atrial fibrillation converted to sinus rhythm, history of coronary artery disease, history of coronary artery bypass surgery, cardiomyopathy, status post automated implantable cardioverter defibrillator insertion. Out of 3 troponins, one troponin 0.13, which is elevated. Osteoporosis, gallstones, history of hypertension, history of myocardial infarction in the past, history of cataract surgery. PLAN: Out of three troponins, one troponin is 0.13 which is elevated. However, the patient is asymptomatic. We will put the patient on Lovenox, and we will stop Eliquis. Lovenox 60 mg subcu q.12 hours, metoprolol which the patient was taking at home 25 b.i.d., now I increased it to 50 b.i.d., atorvastatin 20 daily, isosorbide mononitrate 60 daily, aspirin 81 mg p.o. daily, Plavix 75 mg daily, Protonix 40 mg p.o. daily, Zetia 10 mg daily. We will continue present therapy, and we will follow. Florence Escobar MD
[2017-06-26] MEDS: Pantoprazole 40 mg EC Tab PO SCH (05:36)
[2017-06-26 05:58] VITALS: O2SAT 96
[2017-06-26 08:09] LABS: BASO # 0.02 K/mm3 (0.0-2.0); BASO % 0.4 % (0.0-3.0); EOS # 0.3 (0.0-0.7); EOS % 5.9 % (1.5-5.0); GRAN # 2.62 (1.4-6.5); GRAN % 56.8 % (50.0-68.0); LYMPH # 1.1 (1.2-3.4); LYMPH % 23.9 % (22.0-35.0); MEAN CELL VOLUME 89.6 fl (80.0-105.0); MEAN CORPUSCULAR HEMOGLOBIN 28.7 pg (25.0-35.0); MEAN PLATELET VOLUME 10.5 fl (7.0-11.0); MONO # 0.6 (0.1-0.6); RED CELL DISTRIBUTION WIDTH 13.1 % (11.5-14.5); WHITE BLOOD COUNT 4.6 10^3/ul (4.5-11.0)
[2017-06-26 08:18] LABS: ALB/GLOB RATIO 1.3 (1.1-1.8); BILIRUBIN,TOTAL 0.5 mg/dL (0.2-1.3); POTASSIUM 4.4 mmol/L (3.6-5.0); TOTAL PROTEIN 6.2 g/dL (5.8-8.3)
[2017-06-26] MEDS: Enoxaparin 60 mg Syringe SC SCH (09:35)
--- NOTE | 2017-06-26 10:20 | CP.PCM.PN ---
<Avery Mckinney - Last Filed: 06/26/17 10:43> Subjective - Date & Time of Evaluation Date of Evaluation: 06/26/17 Time of Evaluation: 07:40 - Subjective Subjective: Medicine progress note: Pt seen and examined at bedside. No acute events overnight. Pt denies any chest pain or palpitations at this time. 12 Point ROS performed and negative other than stated above. Objective - Vital Signs/Intake and Output Vital Signs (last 24 hours): Temp Pulse Resp BP Pulse Ox 97.9 F 67 20 127/54 L 96 06/26/17 05:57 06/26/17 08:35 06/26/17 05:57 06/26/17 08:35 06/26/17 05:57 Intake and Output: 06/26/17 06/26/17 06:59 18:59 Intake Total 480 Balance 480 - Medications Medications: Current Medications Acetaminophen (Tylenol 325mg Tab) 650 mg PO Q4 PRN PRN Reason: Pain, moderate (4-7) Last Admin: 06/25/17 00:42 Dose: 650 mg Aspirin (Aspirin Chewable) 81 mg PO DAILY [facility] Last Admin: 06/26/17 09:35 Dose: 81 mg Atorvastatin Calcium (Lipitor) 20 mg PO DIN [facility] Last Admin: 06/25/17 17:26 Dose: 20 mg Clopidogrel Bisulfate (Plavix) 75 mg PO DAILY [facility] Last Admin: 06/26/17 09:35 Dose: 75 mg Ezetimibe (Zetia) 10 mg PO DAILY [facility] Last Admin: 06/26/17 09:35 Dose: 10 mg Enoxaparin Sodium (Lovenox) 60 mg SC Q12H [facility] PRN Reason: Protocol Stop: 06/26/17 20:00 Last Admin: 06/26/17 09:35 Dose: 60 mg Isosorbide Mononitrate (Imdur) 60 mg PO DAILY [facility] Last Admin: 06/26/17 09:35 Dose: 60 mg Metoprolol Tartrate (Lopressor) 50 mg PO BRKDIN [facility] Last Admin: 06/26/17 08:35 Dose: 50 mg Pantoprazole Sodium (Protonix Ec Tab) 40 mg PO 0600 [facility] Last Admin: 06/26/17 05:36 Dose: 40 mg - Labs Labs: 06/26/17 08:00 06/26/17 08:00 PT 11.8 SECONDS (9.4-12.5) 06/24/17 20:07 INR 1.08 (0.93-1.08) 06/24/17 20:07 APTT 27.7 Seconds (25.1-36.5) 06/24/17 20:07 - Constitutional Appears: No Acute Distress - Head Exam Head Exam: ATRAUMATIC, NORMOCEPHALIC - Eye Exam Eye Exam: EOMI, PERRL - ENT Exam ENT Exam: Mucous Membranes Moist, Normal Exam - Respiratory Exam Respiratory Exam: Clear to Ausculation Bilateral. absent: Rales, Wheezes - Cardiovascular Exam Cardiovascular Exam: RRR, +S1, +S2 - GI/Abdominal Exam GI & Abdominal Exam: Soft. absent: Tenderness - Extremities Exam Extremities Exam: absent: Calf Tenderness, Pedal Edema - Neurological Exam Neurological Exam: Alert, Awake, Oriented x3 - Psychiatric Exam Psychiatric exam: Normal Affect, Normal Mood - Skin Skin Exam: Dry, Intact, Warm Assessment and Plan - Assessment and Plan (Free Text) Assessment: 86 year old female with a past medical history that includes coronary artery disease (stats post 3 cardiac stents), CABG, TIA, nephrolithiasis,sinus sick syndrome, dyslipidemia, renal artery stenosis, gallstones, osteoporosis and carotid artery stenosis( left) who comes in post fall earlier today secondary to dizziness. Found to have elevated troponin. 1. Dizziness - possibly 2/2 Afib -In the ED pt had atrial fibrillation with RVR which broke into a sinus rhythm shortly thereafter. -Last Echocardiogram 06/07/17: Showed dilated and severely hypokinetic left ventricle, Ejection fraction of 27%, dilated left atrium, mild mitral regurgitation and tricuspid regurgitation, and moderate pulmonary hypertension. -Last stress test : Showed abnormal SPECT myocardial perfusion study, fixed, inferior, inferolateral, and basal anterolateral defects and mild anterior defects consistent with myocardial injury/infarct, severe left ventricle dysfunction with diffuse hypokinesis and paradoxical septal wall motion, findings similar to last study of 11/07/15. -f/u Orthostatics -f/u Neurology consult for recs - maintan BP 120-130; cont ASA ad Plavix -f/u Cardiology consult for recs - Dr Escobar (covering Dr Rabago service) -cont metoprolol to 50mg BID and started on Lovenox awaiting further recs 2. Elevated troponin - Troponins x 2 elevated at 0.13 --> 0.09 - f/u trops x 3 decreased to .09 - Cardiology consult for recs Increased metoprolol to 50mg BID and started on Lovenox 3.Hypertension - Cont metoprolol 4.Dyslipidemia -Continue home Lipitor 5. Hypomagnesium -will replete as needed GI ppx/ DVT ppx -Protonix -SCD's Case and plan was reviewed and discussed in detail with Dr Hough. <Júnior Hough S - Last Filed: 06/26/17 11:06> Objective - Vital Signs/Intake and Output Vital Signs (last 24 hours): Temp Pulse Resp BP Pulse Ox 97.9 F 67 20 127/54 L 96 06/26/17 05:57 06/26/17 08:35 06/26/17 05:57 06/26/17 08:35 06/26/17 05:57 Intake and Output: 06/26/17 06/26/17 06:59 18:59 Intake Total 480 Balance 480 - Medications Medications: Current Medications Acetaminophen (Tylenol 325mg Tab) 650 mg PO Q4 PRN PRN Reason: Pain, moderate (4-7) Last Admin: 06/25/17 00:42 Dose: 650 mg Aspirin (Aspirin Chewable) 81 mg PO DAILY [facility] Last Admin: 06/26/17 09:35 Dose: 81 mg Atorvastatin Calcium (Lipitor) 20 mg PO DIN [facility] Last Admin: 06/25/17 17:26 Dose: 20 mg Clopidogrel Bisulfate (Plavix) 75 mg PO DAILY [facility] Last Admin: 06/26/17 09:35 Dose: 75 mg Ezetimibe (Zetia) 10 mg PO DAILY [facility] Last Admin: 06/26/17 09:35 Dose: 10 mg Enoxaparin Sodium (Lovenox) 60 mg SC Q12H [facility] PRN Reason: Protocol Stop: 06/26/17 20:00 Last Admin: 06/26/17 09:35 Dose: 60 mg Isosorbide Mononitrate (Imdur) 60 mg PO DAILY [facility] Last Admin: 06/26/17 09:35 Dose: 60 mg Metoprolol Tartrate (Lopressor) 50 mg PO BRKDIN [facility] Last Admin: 06/26/17 08:35 Dose: 50 mg Pantoprazole Sodium (Protonix Ec Tab) 40 mg PO 0600 [facility] Last Admin: 06/26/17 05:36 Dose: 40 mg - Labs Labs: 06/26/17 08:00 06/26/17 08:00 PT 11.8 SECONDS (9.4-12.5) 06/24/17 20:07 INR 1.08 (0.93-1.08) 06/24/17 20:07 APTT 27.7 Seconds (25.1-36.5) 06/24/17 20:07 Assessment and Plan - Assessment and Plan (Free Text) Plan: discussed w/ resident at length went over labs xrays tests meds orders consults plans reviewed
--- NOTE | 2017-06-26 21:33 | PN ---
DATE: 06/26/2017 LOCATION: Room 378, bed 1. This note is being dictated on behalf of Dr. Rabago, who I am covering. REASON FOR CONSULTATION AND FOLLOWUP: Atrial fibrillation, history of coronary artery disease, history of cardiomyopathy. Troponin slightly elevated. SUBJECTIVE: The patient is lying flat in bed without chest pain, shortness of breath or palpitation. PHYSICAL EXAMINATION: VITAL SIGNS: Blood pressure 105/55, respirations 20, pulse 59, temperature 98.5. HEENT: Head is normocephalic. Eyes: Pupils are normal. Conjunctiva, slightly pale. NECK: JVP low. Carotids equal. THORAX: AP diameter normal. LUNGS: Clear. CARDIOVASCULAR: S1 and S2. ABDOMEN: Soft. No tenderness. No organomegaly. Bowel sounds normal. EXTREMITIES: No clubbing. No cyanosis. LABORATORY DATA: WBC 4.6, hemoglobin 9.6, hematocrit 30.0, platelet 159. Sodium 140, potassium 4.4, BUN 26, creatinine 1.2. Glucose 97. AST and ALT normal. First troponin was 0.03, second was 0.13, third was 0.09. The patient's stress test 06/07/2017 was fixed defect. LV ejection fraction 19%. Echo on 06/07/2017 showed ejection fraction 28%. Dilated LV, severe hypokinesis, mild MR, TR and AI. RVSP 48 mmHg suggestive mild pulmonary hypertension. DIAGNOSES: 1. Episode of atrial fibrillation converted to sinus rhythm. 2. History of coronary artery disease. 3. History of coronary artery bypass surgery. 4. Cardiomyopathy ischemic status post automatic implantable cardioverter defibrillator insertion. One troponin 0.13, which is slightly elevated. 5. Osteoporosis. 6. Gallstone. 7. History of hypertension. 8. History of myocardial infarction in the past. 9. History of cataract surgery. PLAN: Slightly elevation troponin raises the question of non-ST elevation myocardial infarction. The patient at present is asymptomatic. The patient's metoprolol was increased from 25 mg b.i.d. to 50 mg b.i.d. because the patient also had episode of atrial fibrillation on 25 b.i.d. The patient also on isosorbide mononitrate 60 mg daily, aspirin 81 mg daily, atorvastatin 20 daily, Plavix 75 daily, Protonix 40 mg daily, Zetia 10 mg daily. I am going to put hold on Lovenox to night dose and Dr. Rabago will follow the patient starting tomorrow morning and he will decide the further therapy of the patient. Florence Escobar MD
[2017-06-27] MEDS: Pantoprazole 40 mg EC Tab PO SCH (05:16)
[2017-06-27 06:32] LABS: BASO # 0.02 K/mm3 (0.0-2.0); BASO % 0.4 % (0.0-3.0); EOS # 0.3 (0.0-0.7); EOS % 5.7 % (1.5-5.0); GRAN # 2.9 (1.4-6.5); GRAN % 56.8 % (50.0-68.0); HEMATOCRIT 31.1 % (36.0-48.0); LYMPH # 1.3 (1.2-3.4); LYMPH % 25.9 % (22.0-35.0); MEAN CELL VOLUME 89.6 fl (80.0-105.0); MEAN CORPUSCULAR HEMOGLOBIN 29.1 pg (25.0-35.0); MEAN CORPUSCULAR HGB CONC 32.5 g/dl (31.0-37.0); MEAN PLATELET VOLUME 10.3 fl (7.0-11.0); MONO # 0.6 (0.1-0.6); MONO % 11.2 % (1.0-6.0); RED CELL DISTRIBUTION WIDTH 13.2 % (11.5-14.5); WHITE BLOOD COUNT 5.1 10^3/ul (4.5-11.0)
[2017-06-27 06:42] LABS: ALB/GLOB RATIO 1.3 (1.1-1.8); BILIRUBIN,TOTAL 0.4 mg/dL (0.2-1.3); CALCIUM 9.2 mg/dL (8.4-10.5); POTASSIUM 4.4 mmol/L (3.6-5.0); TOTAL PROTEIN 6.2 g/dL (5.8-8.3)
--- NOTE | 2017-06-27 09:17 | CP.PCM.PN ---
Subjective - Date & Time of Evaluation Date of Evaluation: 06/27/17 Time of Evaluation: 07:20 - Subjective Subjective: Patient was seen and examined at bedside. she offers no acute complaints overnight. she denies current dizziness, weakness, chest pain, palpitations, n/v /d, fevers/chills, abdominal pain. Objective - Vital Signs/Intake and Output Vital Signs (last 24 hours): Temp Pulse Resp BP Pulse Ox 98.1 F 72 19 155/66 H 96 06/27/17 06:00 06/27/17 06:00 06/27/17 06:00 06/27/17 06:00 06/27/17 06:00 Intake and Output: 06/27/17 06/27/17 06:59 18:59 Intake Total 0 Output Total 0 Balance 0 - Medications Medications: Current Medications Acetaminophen (Tylenol 325mg Tab) 650 mg PO Q4 PRN PRN Reason: Pain, moderate (4-7) Last Admin: 06/25/17 00:42 Dose: 650 mg Aspirin (Aspirin Chewable) 81 mg PO DAILY [facility] Last Admin: 06/26/17 09:35 Dose: 81 mg Atorvastatin Calcium (Lipitor) 20 mg PO DIN [facility] Last Admin: 06/26/17 17:44 Dose: 20 mg Clopidogrel Bisulfate (Plavix) 75 mg PO DAILY [facility] Last Admin: 06/26/17 09:35 Dose: 75 mg Ezetimibe (Zetia) 10 mg PO DAILY [facility] Last Admin: 06/26/17 09:35 Dose: 10 mg Isosorbide Mononitrate (Imdur) 60 mg PO DAILY [facility] Last Admin: 06/26/17 09:35 Dose: 60 mg Metoprolol Tartrate (Lopressor) 50 mg PO BRKDIN [facility] Last Admin: 06/26/17 17:43 Dose: 50 mg Pantoprazole Sodium (Protonix Ec Tab) 40 mg PO 0600 [facility] Last Admin: 06/27/17 05:16 Dose: 40 mg - Labs Labs: 06/27/17 06:10 06/27/17 06:10 PT 11.8 SECONDS (9.4-12.5) 06/24/17 20:07 INR 1.08 (0.93-1.08) 06/24/17 20:07 APTT 27.7 Seconds (25.1-36.5) 06/24/17 20:07 - Constitutional Appears: Well, Non-toxic, No Acute Distress - Head Exam Head Exam: ATRAUMATIC, NORMAL INSPECTION, NORMOCEPHALIC - Eye Exam Eye Exam: EOMI, Normal appearance, PERRL - ENT Exam ENT Exam: Mucous Membranes Moist, Normal Exam - Neck Exam Additional comments: ecchymosis located over R chin and R neck (lateral to anterior midline) - Respiratory Exam Respiratory Exam: Clear to Ausculation Bilateral, NORMAL BREATHING PATTERN. absent: Rales, Rhonchi, Wheezes - Cardiovascular Exam Cardiovascular Exam: RRR, +S1, +S2. absent: JVD - GI/Abdominal Exam GI & Abdominal Exam: Soft, Normal Bowel Sounds. absent: Distended, Tenderness - Extremities Exam Extremities Exam: absent: Pedal Edema - Back Exam Back Exam: NORMAL INSPECTION - Neurological Exam Neurological Exam: Alert, Awake, Oriented x3 - Psychiatric Exam Psychiatric exam: Normal Affect, Normal Mood - Skin Skin Exam: Normal Color, Warm Additional comments: neck findings noted above Assessment and Plan - Assessment and Plan (Free Text) Assessment: 86 yo female with PMH of coronary artery disease (stats post 3 cardiac stents), CABG, TIA, nephrolithiasis, sick sinus syndrome, dyslipidemia, renal artery stenosis, gallstones, osteoporosis and carotid artery stenosis (left) who presented s/p fall 2/2 dizziness. Patient was found to have elevated troponin, and is currently being treated for NSTEMI. Plan: 1. Dizziness, possibly 2/2 Afib - In the ED, atrial fibrillation with RVR broke into a sinus rhythm shortly thereafter - Last Echocardiogram 06/07/17: Showed dilated and severely hypokinetic left ventricle, Ejection fraction of 27%, dilated left atrium, mild mitral regurgitation and tricuspid regurgitation, and moderate pulmonary hypertension. - Last stress test : Showed abnormal SPECT myocardial perfusion study, fixed, inferior, inferolateral, and basal anterolateral defects and mild anterior defects consistent with myocardial injury/infarct, severe left ventricle dysfunction with diffuse hypokinesis and paradoxical septal wall motion, findings similar to last study of 11/07/15. - f/u Orthostatics - Neurology consulted, recs appreciated- maintan BP 120-130; cont ASA ad Plavix - Cardiology consulted, recs appreciated - Dr Escobar (covering Dr Rabago service) -cont metoprolol to 50mg BID and started on Lovenox awaiting further recs 2. Elevated troponin, r/o NSTEMI - NPO in case cardio wants to cath today - cont Plavix 75, ASA - Troponins trend: 0.03--> 0.13 --> 0.09 - Cardiology consulted, recs appreciated 3. Hx Hypertension - stable this admission - cont Lopressor 4. Dyslipidemia - cont Lipitor, Zetia 5. Hypomagnesium -will replete as needed 6. GI/ DVT ppx -Protonix/ Plavix & SCD's Patient was seen, examined and discussed with attending, Dr. Jacobo Oneil PGY1 Pager # [phone]
--- NOTE | 2017-06-27 11:57 | PN ---
DATE: 06/27/2017 CARDIOLOGY FOLLOWUP NOTE SUBJECTIVE: The patient is recovering status post fall. She is ambulating without chest pain. PHYSICAL EXAMINATION: VITAL SIGNS: Heart rate is stable. NECK: Negative JVD. LUNGS: Without rales. HEART: S1 and S2. EXTREMITIES: Without edema. Her right jaw area is bruised. There is a bruise over her pacemaker area. LABORATORY DATA: Her troponins were negative on admission, went up to 0.13 the next day, it is now back down to 0.09. BUN and creatinine unremarkable. The hemoglobin is 10. IMPRESSION: 1. Status post mechanical fall. 2. Borderline elevated troponin that was transient. 3. No evidence for chest pain. 4. End-stage dilated cardiomyopathy. 5. Coronary artery disease. 6. Anemia. PLAN: Given these findings, the patient's stress test 2 weeks ago was unchanged and unremarkable. I do not feel the patient is having an acute coronary syndrome. From a cardiac perspective, we will discharge the patient today. We will follow up as an outpatient and we will continue her medical therapy. Jose Rabago MD
[2017-06-27 13:05] VITALS: BP 115/60; RESP 17; TEMP 98.3
[2017-06-27 14:22] VITALS: PULSE 65
--- NOTE | 2017-06-27 15:22 | CP.PCM.DIS ---
Provider - Provider Date of Admission: 06/24/17 20:45 Attending physician: Jai Rodriguez MD Primary care physician: Jai Rodriguez MD Time Spent in preparation of Discharge (in minutes): 40 Hospital Course - Lab Results Lab Results: Most Recent Lab Values WBC 5.1 10^3/ul (4.5-11.0) 06/27/17 06:10 RBC 3.47 10^6/uL (3.5-6.1) L 06/27/17 06:10 Hgb 10.1 g/dL (12.0-16.0) L 06/27/17 06:10 Hct 31.1 % (36.0-48.0) L 06/27/17 06:10 MCV 89.6 fl (80.0-105.0) 06/27/17 06:10 MCH 29.1 pg (25.0-35.0) 06/27/17 06:10 MCHC 32.5 g/dl (31.0-37.0) 06/27/17 06:10 RDW 13.2 % (11.5-14.5) 06/27/17 06:10 Plt Count 155 10^3/uL (120.0-450.0) 06/27/17 06:10 MPV 10.3 fl (7.0-11.0) 06/27/17 06:10 Gran % 56.8 % (50.0-68.0) 06/27/17 06:10 Lymph % (Auto) 25.9 % (22.0-35.0) 06/27/17 06:10 [place] % (Auto) 11.2 % (1.0-6.0) H 06/27/17 06:10 Eos % (Auto) 5.7 % (1.5-5.0) H 06/27/17 06:10 Baso % (Auto) 0.4 % (0.0-3.0) 06/27/17 06:10 Gran # 2.90 (1.4-6.5) 06/27/17 06:10 Lymph # 1.3 (1.2-3.4) 06/27/17 06:10 [place] # 0.6 (0.1-0.6) 06/27/17 06:10 Eos # 0.3 (0.0-0.7) 06/27/17 06:10 Baso # 0.02 K/mm3 (0.0-2.0) 06/27/17 06:10 PT 11.8 SECONDS (9.4-12.5) 06/24/17 20:07 INR 1.08 (0.93-1.08) 06/24/17 20:07 APTT 27.7 Seconds (25.1-36.5) 06/24/17 20:07 Sodium 141 mmol/L (132-148) 06/27/17 06:10 Potassium 4.4 mmol/L (3.6-5.0) 06/27/17 06:10 Chloride 106 mmol/L (98-107) 06/27/17 06:10 Carbon Dioxide 26 mmol/L (21-33) 06/27/17 06:10 Anion Gap 13 (10-20) 06/27/17 06:10 BUN 27 mg/dL (7-21) H 06/27/17 06:10 Creatinine 1.1 mg/dl (0.7-1.2) 06/27/17 06:10 Est GFR ( Amer) 57 06/27/17 06:10 Est GFR (Non-Af Amer) 47 06/27/17 06:10 Random Glucose 97 mg/dL (70-110) 06/27/17 06:10 Calcium 9.2 mg/dL (8.4-10.5) 06/27/17 06:10 Magnesium 1.4 mg/dL (1.7-2.2) L 06/24/17 20:07 Total Bilirubin 0.4 mg/dL (0.2-1.3) 06/27/17 06:10 AST 27 U/L (14-36) 06/27/17 06:10 ALT 43 U/L (7-56) 06/27/17 06:10 Alkaline Phosphatase 87 U/L (38-126) 06/27/17 06:10 Lactate Dehydrogenase 729 U/L (333-699) H 06/24/17 20:07 Total Creatine Kinase 85 U/L (35-230) 06/24/17 20:07 Troponin I 0.09 ng/mL D 06/25/17 14:00 Total Protein 6.2 g/dL (5.8-8.3) 06/27/17 06:10 Albumin 3.5 g/dL (3.0-4.8) 06/27/17 06:10 Globulin 2.7 gm/dL 06/27/17 06:10 Albumin/Globulin Ratio 1.3 (1.1-1.8) 06/27/17 06:10 Urine Color Yellow (YELLOW) 06/24/17 22:07 Urine Appearance Clear (CLEAR) 06/24/17 22:07 Urine pH 6.0 (4.7-8.0) 06/24/17 22:07 Ur Specific [place] <= 1.005 (1.005-1.035) 06/24/17 22:07 Urine Protein Negative mg/dL (<30 mg/dL) 06/24/17 22:07 Urine Glucose (UA) Negative mg/dL (NEGATIVE) 06/24/17 22:07 Urine Ketones Negative mg/dL (NEGATIVE) 06/24/17 22:07 Urine Blood Trace-lysed (NEGATIVE) H 06/24/17 22:07 Urine Nitrate Negative (NEGATIVE) 06/24/17 22:07 Urine Bilirubin Negative (NEGATIVE) 06/24/17 22:07 Urine Urobilinogen 0.2 E.U./dL (<1 E.U./dL) 06/24/17 22:07 Ur Leukocyte Esterase Moderate Lucie/uL (NEGATIVE) H 06/24/17 22:07 Urine RBC 2 - 5 /hpf (0-2) 06/24/17 22:07 Urine WBC 15 - 20 /hpf (0-6) 06/24/17 22:07 Ur Epithelial Cells 4 - 5 /hpf (0-5) 06/24/17 22:07 Amorphous Sediment Few 06/24/17 22:07 Urine Bacteria Many (NEG) 06/24/17 22:07 - Hospital Course Hospital Course: Mrs. Vu is an 86 year old female with a past medical history of coronary artery disease (stats post 3 cardiac stents), CABG, TIA, nephrolithiasis, sick sinus syndrome, dyslipidemia, renal artery stenosis, gallstones, osteroporosis and carotid artery stenosis (left) who presented s/p fall. The patient reported feeling lightheaded and dizzy before falling, and hitting her chin on a chair. She denied LOC, loss of urinary/bowel control, or any seizure-like activity. The patient had a recent cardiac workup (Dr. Rabago) and follows closely with Dr. Rodriguez. In ED, EKG was unremarkable and CT Head showed nonspecific white matter changes. 1cm laceration on the chin was repaired with Dermabond with no complications. Last Echocardiogram (06/07/17) showed dilated and severely hypokinetic left ventricle, Ejection fraction of 27%, dilated left atrium, mild mitral regurgitation and tricuspid regurgitation, and moderate pulmonary hypertension. Last pharmocological stress test (06/07/17) showed fixed, inferior, inferolateral, and basal anterolateral defects and mild anterior defects consistent with myocardial injury/infarct, severe left ventricle dysfunction with diffuse hypokinesis and paradoxical septal wall motion, findings similar to last study of 11/07/15. Patient was transferred to telemetry unit for monitoring. Cardiology and Neurology were consulted, and their recs were followed and appreciated. Troponin was trended and spiked to 0.13 but trended down to 0.09. The patient had no complaints of chest pain, shortness of breath, or any changes in mental status. PT eval cleared pt for discharge. Cardio and Neuro cleared the patient for d/c. Patient offers no complaints and understands the plan moving forward. Will follow up with Dr. Rodriguez and Dr. Rabago as a outpatient. - Date & Time of H&P Date of H&P: 06/24/17 Time of H&P: 22:40 Discharge Exam - Additional Findings Additional findings: - Constitutional Appears: Well, Non-toxic, No Acute Distress - Head Exam Head Exam: ATRAUMATIC, NORMAL INSPECTION, NORMOCEPHALIC - Eye Exam Eye Exam: EOMI, Normal appearance, PERRL - ENT Exam ENT Exam: Mucous Membranes Moist, Normal Exam - Neck Exam Additional comments: ecchymosis located over R chin and R neck (lateral to anterior midline) - Respiratory Exam Respiratory Exam: Clear to Ausculation Bilateral, NORMAL BREATHING PATTERN. absent: Rales, Rhonchi, Wheezes - Cardiovascular Exam Cardiovascular Exam: RRR, +S1, +S2. absent: JVD - GI/Abdominal Exam GI & Abdominal Exam: Soft, Normal Bowel Sounds. absent: Distended, Tenderness - Extremities Exam Extremities Exam: absent: Pedal Edema Additional comments: R elbow dressed, clean/dry/intact - Back Exam Back Exam: NORMAL INSPECTION - Neurological Exam Neurological Exam: Alert, Awake, Oriented x3 - Psychiatric Exam Psychiatric exam: Normal Affect, Normal Mood - Skin Skin Exam: Normal Color, Warm Additional comments: neck findings noted above Discharge Plan - Follow Up Plan Condition: GOOD Disposition: HOME/ ROUTINE Instructions: Chest Pain (DC), Chest Pain (GEN) Additional Instructions: - please follow up with Dr. Rodriguez within 1 week - please continue your medications as prescribed - if you experience new dizziness, shortness of breath, palpitations, weakness, changes in mental status, or slurred speech, please return to ER for evaluation Referrals: Jai Rodriguez MD [Primary Care Provider] - Jose Rabago MD [Staff Provider] -
== END 2017-06-27 15:44 | disposition home or self-care (01) | DRG 310 ==
LOC: ED 19:09 → ERH 20:45 → 3RSO 22:31
PROVIDERS: ADMIT Internal Medicine; ATTEND Internal Medicine
DX: I48.0 Paroxysmal atrial fibrillation (principal); I27.20 Pulmonary hypertension, unspecified; I42.0 Dilated cardiomyopathy; E83.42 Hypomagnesemia; I08.1 Rheumatic disorders of both mitral and tricuspid valves; W19.XXXA Unspecified fall, initial encounter; I70.1 Atherosclerosis of renal artery; D64.9 Anemia, unspecified; I25.5 Ischemic cardiomyopathy; I25.10 Atherosclerotic heart disease of native coronary artery without angina pectoris; E78.5 Hyperlipidemia, unspecified; I10 Essential (primary) hypertension; I25.2 Old myocardial infarction; K80.20 Calculus of gallbladder without cholecystitis without obstruction; M81.0 Age-related osteoporosis without current pathological fracture; Z82.49 Family history of ischemic heart disease and other diseases of the circulatory system; Z85.820 Personal history of malignant melanoma of skin; Z86.73 Personal history of transient ischemic attack (TIA), and cerebral infarction without residual deficits; Z87.442 Personal history of urinary calculi; Z87.891 Personal history of nicotine dependence; Z95.1 Presence of aortocoronary bypass graft; Z95.5 Presence of coronary angioplasty implant and graft; Z95.810 Presence of automatic (implantable) cardiac defibrillator; Z98.49 Cataract extraction status, unspecified eye; Z96.1 Presence of intraocular lens; Z88.9 Allergy status to unspecified drugs, medicaments and biological substances; R53.81 Other malaise

== ENCOUNTER 2017-11-06 08:14 | Inpatient (IN) | payer MEDICARE ==
[2017-11-06 08:15] VITALS: PULSE 150
[2017-11-06 08:40] VITALS: BMI 22.8
[2017-11-06] MEDS ORDERED: Famotidine 20mg/50ml 20 MG/50 ML BAG IVPB STA (08:45)
[2017-11-06 09:01] LABS: BASO # 0.02 K/mm3 (0.0-2.0); BASO % 0.4 % (0.0-3.0); EOS # 0.1 (0.0-0.7); EOS % 1.5 % (1.5-5.0); GRAN # 3.97 (1.4-6.5); GRAN % 72.2 % (50.0-68.0); HEMOGLOBIN 11.4 g/dL (12.0-16.0); LYMPH # 0.8 (1.2-3.4); LYMPH % 14.8 % (22.0-35.0); MEAN CELL VOLUME 87.4 fl (80.0-105.0); MEAN CORPUSCULAR HEMOGLOBIN 28.8 pg (25.0-35.0); MEAN CORPUSCULAR HGB CONC 32.9 g/dl (31.0-37.0); MEAN PLATELET VOLUME 10.3 fl (7.0-11.0); MONO # 0.6 (0.1-0.6); MONO % 11.1 % (1.0-6.0); RBC 3.96 10^6/uL (3.5-6.1); RED CELL DISTRIBUTION WIDTH 13.4 % (11.5-14.5); WHITE BLOOD COUNT 5.5 10^3/ul (4.5-11.0)
[2017-11-06 09:11] LABS: ALB/GLOB RATIO 1.6 (1.1-1.8); ALBUMIN 4.3 g/dL (3.0-4.8); ALT/SGPT 27 U/L (7-56); AST/SGOT 29 U/L (14-36); BLOOD UREA NITROGEN 27 mg/dL (7-21); CALCIUM 9.7 mg/dL (8.4-10.5); GFR AFRICAN-AMERICAN 51; GFR NON-AFRICAN AMERICAN 42
[2017-11-06 09:22] LABS: TROPONIN I < 0.01 ng/mL
--- NOTE | 2017-11-06 09:24 | ED PDOC ---
Arrival/HPI - General Chief Complaint: Cough, Cold, Congestion Time Seen by Provider: 11/06/17 08:34 Historian: Patient, Spouse - History of Present Illness Narrative History of Present Illness (Text): 11/06/17 09:24 A 87 year old female, whose past medical history includes CAD w/ 3 cardiac stents, CABG, pace maker, difibillator, hypertension, TIA, kidney stones, one renal stent, gall stones, and osteoporosis, presents to the Emergency department for epigastric discomfort and chest tightness for the last 2 days. The patient reports she can not sleep at night, she is constantly spitting up sputum, and has nausea. She denies any fever, palpitation, cough, vomiting, diarrhea, or any other complaints at this time. PMD: Dr. Gage Cardio: Dr. Rabago Time/Duration: < week (2 days ) Symptom Onset: Gradual Symptom Course: Unchanged Quality: Tightness, Other (sore) Activities at Onset: Light Context: Home Past Medical History - Provider Review Nursing Documentation Reviewed: Yes - Infectious Disease Hx of Infectious Diseases: None - Tetanus Immunization Tetanus Immunization: Unknown - Reproductive Menopause: Yes - Cardiac Hx Cardiac Disorders: Yes (TRIPLE BYPASS,CAROTID STENOSIS,CAD) Hx Cardiac Arrhythmia: Yes Hx TX: Yes Hx Hypertension: Yes Other/Comment: Pacemaker/Defib - Pulmonary Hx Respiratory Disorders: Yes Hx Bronchitis: Yes - Neurological Hx Transient Ischemic Attacks (TIA): Yes - HEENT Hx HEENT Disorder: Yes Hx Cataracts: Yes (WITH LENS IMPLANT) - Renal Hx Kidney Stones: Yes - Endocrine/Metabolic Hx Endocrine Disorders: No - Hematological/Oncological Hx Blood Transfusions: No Hx Blood Transfusion Reaction: No - Integumentary Hx Dermatological Disorder: Yes Hx Melanoma: Yes (NOSE WITH SKIN GRAFT AND CHEEKS AND FOREHEAD SKIN CA) - Musculoskeletal/Rheumatological Hx Musculoskeletal Disorders: Yes Hx Osteoporosis: Yes - Gastrointestinal Hx Gastrointestinal Disorders: Yes Hx Gall Bladder Disease: Yes (GALLSTONES) - Genitourinary/Gynecological Other/Comment: stent in the kidney - Psychiatric Hx Psychophysiologic Disorder: No Hx Substance Use: No - Past Surgical History Past Surgical History: Non-Contributing - Surgical History Hx Coronary Stent: Yes (x3) Other/Comment: pacemaker/defib, kidney stent - Anesthesia Hx Anesthesia: Yes - Suicidal Assessment Feels Threatened In Home Enviroment: No Family/Social History - Physician Review Nursing Documentation Reviewed: Yes Family/Social History: No Known Family HX Smoking Status: Former Smoker Hx Alcohol Use: No Hx Substance Use: No Hx Substance Use Treatment: No Allergies/Home Meds Allergies/Adverse Reactions: Allergies heparin Allergy (Verified 09/05/17 14:46) vaginal bleed, chills Home Medications: Home Meds Medication Instructions Recorded Confirmed Aspirin [Ecotrin] 81 mg PO DAILY 06/07/17 11/06/17 Clopidogrel [Plavix] 75 mg PO DAILY 06/07/17 11/06/17 Ezetimibe [Zetia] 10 mg PO DAILY 06/07/17 11/06/17 Isosorbide Mononitrate [Imdur] 60 mg PO DAILY 06/07/17 11/06/17 Losartan Potassium 50 mg PO DAILY 06/07/17 11/06/17 Metoprolol Tartrate [Lopressor] 25 mg PO TID 06/07/17 11/06/17 Simvastatin [Zocor] 40 mg PO DAILY 06/07/17 11/06/17 Ursodiol [Actigall] 300 mg PO BID 06/07/17 11/06/17 Calcium 1,000 + D3 Caplet 1 tab PO DAILY 09/05/17 11/06/17 Denosumab [Prolia] 60 mg SC Q180D 09/05/17 11/06/17 Amiodarone [Cordarone] 200 mg PO DAILY 11/06/17 11/06/17 amLODIPine [Norvasc] 5 mg PO DAILY 11/06/17 11/06/17 Review of Systems - Review of Systems Constitutional: absent: Fevers Respiratory: Sputum. absent: SOB, Cough Cardiovascular: absent: Chest Pain, Palpitations Gastrointestinal: Abdominal Pain (epigastric), Nausea. absent: Diarrhea, Vomiting Genitourinary Female: absent: Dysuria Physical Exam Vital Signs Reviewed: Yes Vital Signs Temp Pulse Resp BP Pulse Ox 11/06/17 08:15 98.8 F 62 18 151/64 H 100 Temperature: Afebrile Blood Pressure: Hypertensive Pulse: Regular Respiratory Rate: Normal Appearance: Positive for: Well-Appearing, Non-Toxic, Comfortable Pain Distress: None Mental Status: Positive for: Alert and Oriented X 3 - Systems Exam Head: Present: Atraumatic, Normocephalic Pupils: Present: PERRL Extroacular Muscles: Present: EOMI Conjunctiva: Present: Normal Mouth: Present: Moist Mucous Membranes Neck: Present: Normal Range of Motion Respiratory/Chest: Present: Clear to Auscultation, Good Air Exchange. No: Respiratory Distress, Accessory Muscle Use, Wheezes Cardiovascular: Present: Regular Rate and Rhythm, Normal S1, S2. No: Murmurs Abdomen: No: Tenderness, Distention, Peritoneal Signs Back: Present: Normal Inspection Upper Extremity: Present: Normal Inspection. No: Cyanosis, Edema Lower Extremity: Present: Normal Inspection. No: Edema Neurological: Present: GCS=15, CN II-XII Intact, Speech Normal Skin: Present: Warm, Dry, Normal Color. No: Rashes Psychiatric: Present: Alert, Oriented x 3, Normal Insight, Normal Concentration Medical Decision Making ED Course and Treatment: 11/06/17 09:36 Impression: A 87 year old female with epigastric tenderness and chest tightness. Differential Diagnosis included but are not limited to: Gastritis/Reflux vs ACS vs Pneumonia Plan: -- Pepcid, Zofran -- Reassess and disposition Progress Notes: EKG: Ordered, reviewed, and independently interpreted the EKG. Rate : 70 BPM Rhythm : Pace Rhythm Interpretation : No ST-segment elevations or depressions, no T-wave inversions, normal intervals. Comparison : No previous EKG for comparison. 11/06/17 10:06 M Mirella did not improve with Pepcid IV and Zofran. She still feels a soreness. She took her ASA 81 and Plavix today. Will give 81mg ASA with Maalox. Case discussed with Dr. De Guzman who admits for Dr. Rodriguez who agrees to place on observation telemetry. - Lab Interpretations Lab Results: 11/06/17 08:50 11/06/17 08:50 Lab Results 11/06/17 08:50: Sodium 144, Potassium 4.0, Chloride 106, Carbon Dioxide 25, Anion Gap 18, BUN 27 H, Creatinine 1.2, Est GFR ( Amer) 51, Est GFR (Non- Af Amer) 42, Random Glucose 121 H, Calcium 9.7, Magnesium 1.9, Total Bilirubin 0.6, AST 29, ALT 27, Alkaline Phosphatase 49, Lactate Dehydrogenase 560, Total Creatine Kinase 68, Troponin I < 0.01 D, Total Protein 7.0, Albumin 4.3, Globulin 2.7, Albumin/Globulin Ratio 1.6 11/06/17 08:50: WBC 5.5, RBC 3.96, Hgb 11.4 L, Hct 34.6 L, MCV 87.4, MCH 28.8, MCHC 32.9, RDW 13.4, Plt Count 179, MPV 10.3, Gran % 72.2 H, Lymph % (Auto) 14.8 L, [place] % (Auto) 11.1 H, Eos % (Auto) 1.5, Baso % (Auto) 0.4, Gran # 3.97, Lymph # (Auto) 0.8 L, [place] # (Auto) 0.6, Eos # (Auto) 0.1, Baso # (Auto) 0.02 - RAD Interpretation Radiology Orders: 11/06/17 08:45 CHEST PORTABLE [RAD] Stat - Medication Orders Current Medication Orders: Discontinued Medications Al Hydrox/Mg Hydrox/Simethicone (Maalox Plus 30 Ml) 30 ml PO STAT STA Stop: 11/06/17 10:04 Famotidine (Pepcid 20mg/50ml Premix) 20 mg in 50 mls @ 100 mls/hr IVPB STAT STA Stop: 11/06/17 09:14 Last Admin: 11/06/17 08:57 Dose: 100 mls/hr eMAR Start Stop Document 11/06/17 08:57 SRE (Rec: 11/06/17 08:57 SRE [id number]) Intravenous Solution Start Date 11/06/17 Start Time 08:57 End Date 11/06/17 End time 09:55 Total Infusion Time 58 Ondansetron HCl (Zofran Inj) 4 mg IVP STAT STA Stop: 11/06/17 08:46 Last Admin: 11/06/17 08:57 Dose: 4 mg IVP Administration Document 11/06/17 08:57 SRE (Rec: 11/06/17 08:57 SRE [id number]) Charges for Administration # of IVP Administrations 1 - Scribe Statement The provider has reviewed the documentation as recorded by the Scribsusan Currie Provider Scribe Attestation: All medical record entries made by the Scribe were at my direction and personally dictated by me. I have reviewed the chart and agree that the record accurately reflects my personal performance of the history, physical exam, medical decision making, and the department course for this patient. I have also personally directed, reviewed, and agree with the discharge instructions and disposition. Disposition/Present on Arrival - Present on Arrival Any Indicators Present on Arrival: No History of DVT/PE: No History of Uncontrolled Diabetes: No Urinary Catheter: No History of Decub. Ulcer: No History Surgical Site Infection Following: None - Disposition Have Diagnosis and Disposition been Completed?: Yes Diagnosis: Chest pain Disposition: HOSPITALIZED Disposition Time: 10:08 Patient Plan: Observation Condition: FAIR Discharge Instructions (ExitCare): Chest Pain (ED) Forms: SDI ([place])
--- NOTE | 2017-11-06 09:28 | RAD ---
HISTORY: chest tightness COMPARISON: 06/24/2017 FINDINGS: LUNGS: Left pacemaker is unchanged. There is evidence of prior median sternotomy. No new focal infiltrate is seen. Chronic mild interstitial change in pleural parenchymal change/ scarring are once again appreciated. PLEURA: Unchanged. CARDIOVASCULAR: No CHF. Cardiomegaly. OSSEOUS STRUCTURES: No significant abnormalities. VISUALIZED UPPER ABDOMEN: Normal. OTHER FINDINGS: None. IMPRESSION: No new focal infiltrate or CHF. Cardiomegaly.
[2017-11-06] MEDS ORDERED: Alum-Mag Hydrox-Simethicone Susp (30 mL) PO STA (10:03)
--- NOTE | 2017-11-06 10:11 | CP.PCM.HP ---
<Elizabeth Berumen - Last Filed: 11/06/17 10:44> History of Present Illness - History of Present Illness History of Present Illness: H&P for Hospitalist, Lewis Berumen PGY2 This is a 87yo F with PMH CAD s/p 3 stents, CHF (EF~27% in 05/2017), CABG, TIA, sick sinus syndrome s/p pacer and AICD, carotid artery stenosis s/p L stent who came to ED for epigastric pain. Patient reports she has had this epigastric pain on and off for about 1 month. She was seen by her EP Dr. Nelson who interrogated her AICD and reports it could be secondary to her CHF. Patient states that her stomach feels distended and she coughs up white phlegm at times , but denies leg swelling, chest pain, shortness of breath, fever or chills, nausea/vomiting/diarrhea. The pain does not radiate anywhere. She decided to come in today because she could not sleep last night because of the discomfort. She uses 4 pillows at night which is her normal and reports having a good appetite and good BMs. She walked several blocks yesterday without feeling short of breath. She denies sick contacts or recent travel. Patient was given Pepcid and Maalox in ED without any relief. Past medical history: CAD s/p 3 stents, HTN, TIA, nephrolithiasis, sick sinus syndrome s/p pacer and AICD, dyslipidemia, renal artery stenosis s/p stent, osteoporosis Past surgical history: 3 cardiac stents, AICD/pacer placement, CABG, carotid artery stent placement, renal artery stent Home meds: Updated as per SEP Allergies: Heparin- vaginal bleeding and stomach pain Social history: Former smoker >30yrs ago. Denies EtOH or illicit drug use. Performs ADL's AND IDL's with the assistance of a cane. She lives with her . PMD: Dr. Sosa Weather Strip Mechanic: Dr. Rabago Present on Admission - Present on Admission Any Indicators Present on Admission: No Review of Systems - Review of Systems All systems: reviewed and no additional remarkable complaints except Review of Systems: 12 point ROS reviewed as per HPI Past Patient History - Infectious Disease Hx of Infectious Diseases: None - Tetanus Immunizations Tetanus Immunization: Unknown - Past Social History Smoking Status: Former Smoker - CARDIAC Hx Cardiac Disorders: Yes (TRIPLE BYPASS,CAROTID STENOSIS,CAD) Hx Cardia Arrhythmia: Yes Hx Heart Attack: Yes Hx Hypertension: Yes Other/Comment: Pacemaker/Defib - PULMONARY Hx Respiratory Disorders: Yes Hx Bronchitis: Yes - NEUROLOGICAL Hx Transient Ischemic Attacks (TIA): Yes - HEENT Hx HEENT Problems: Yes Hx Cataracts: Yes (WITH LENS IMPLANT) - RENAL Hx Kidney Stones: Yes - ENDOCRINE/METABOLIC Hx Endocrine Disorders: No - HEMATOLOGICAL/ONCOLOGICAL Hx Blood Transfusions: No Hx Blood Transfusion Reaction: No - INTEGUMENTARY Hx Dermatological Problems: Yes Hx Melanoma: Yes (NOSE WITH SKIN GRAFT AND CHEEKS AND FOREHEAD SKIN CA) - MUSCULOSKELETAL/RHEUMATOLOGICAL Hx Musculoskeletal Disorders: Yes Hx Osteoporosis: Yes - GASTROINTESTINAL Hx Gastrointestinal Disorders: Yes Hx Gall Bladder Disease: Yes (GALLSTONES) - GENITOURINARY/GYNECOLOGICAL Other/Comment: stent in the kidney - PSYCHIATRIC Hx Psychophysiologic Disorder: No Hx Substance Use: No - SURGICAL HISTORY Hx Coronary Stent: Yes (x3) Other/Comment: pacemaker/defib, kidney stent - ANESTHESIA Hx Anesthesia: Yes Meds Allergies/Adverse Reactions: Allergies Allergy/AdvReac Type Severity Reaction Status Date / Time heparin Allergy vaginal Verified 09/05/17 14:46 bleed, chills Physical Exam - Constitutional Appears: No Acute Distress - Head Exam Head Exam: ATRAUMATIC, NORMAL INSPECTION, NORMOCEPHALIC - Eye Exam Eye Exam: EOMI, Normal appearance, PERRL Pupil Exam: NORMAL ACCOMODATION - ENT Exam ENT Exam: Mucous Membranes Moist - Neck Exam Neck exam: Positive for: Normal Inspection - Respiratory Exam Respiratory Exam: Clear to Auscultation Bilateral, NORMAL BREATHING PATTERN. absent: Rales, Rhonchi, Wheezes - Cardiovascular Exam Cardiovascular Exam: REGULAR RHYTHM, +S1, +S2. absent: Gallop, Rubs, Systolic Murmur - GI/Abdominal Exam GI & Abdominal Exam: Normal Bowel Sounds, Soft. absent: Mass, Rebound, Rigid, Tenderness - Extremities Exam Extremities exam: Positive for: normal inspection. Negative for: calf tenderness, pedal edema - Neurological Exam Neurological exam: Alert, CN II-XII Intact, Oriented x3 - Psychiatric Exam Psychiatric exam: Normal Affect, Normal Mood - Skin Skin Exam: Dry, Warm Results - Vital Signs Recent Vital Signs: Last Vital Signs Temp 98.8 F 11/06/17 08:15 Pulse 62 11/06/17 08:15 Resp 18 11/06/17 08:15 BP 151/64 H 11/06/17 08:15 Pulse Ox 100 11/06/17 08:15 - Labs Result Diagrams: 11/06/17 08:50 11/06/17 08:50 Labs: Laboratory Results - last 24 hr 11/06/17 11/06/17 08:50 08:50 WBC 5.5 RBC 3.96 Hgb 11.4 L Hct 34.6 L MCV 87.4 MCH 28.8 MCHC 32.9 RDW 13.4 Plt Count 179 MPV 10.3 Gran % 72.2 H Lymph % (Auto) 14.8 L [place] % (Auto) 11.1 H Eos % (Auto) 1.5 Baso % (Auto) 0.4 Gran # 3.97 Lymph # (Auto) 0.8 L [place] # (Auto) 0.6 Eos # (Auto) 0.1 Baso # (Auto) 0.02 Sodium 144 Potassium 4.0 Chloride 106 Carbon Dioxide 25 Anion Gap 18 BUN 27 H Creatinine 1.2 Est GFR ( Amer) 51 Est GFR (Non-Af Amer) 42 Random Glucose 121 H Calcium 9.7 Magnesium 1.9 Total Bilirubin 0.6 AST 29 ALT 27 Alkaline Phosphatase 49 Lactate Dehydrogenase 560 Total Creatine Kinase 68 Troponin I < 0.01 D Total Protein 7.0 Albumin 4.3 Globulin 2.7 Albumin/Globulin Ratio 1.6 Assessment & Plan - Assessment and Plan (Free Text) Assessment: This is a 87yo F with PMH CAD s/p 3 stents, CHF (EF~27% in 05/2017), CABG, TIA, sick sinus syndrome s/p pacer and AICD, carotid artery stenosis s/p L stent who was admitted for intermittent epigastric pain x 1 month. Plan: 1. Epigastric pain r/o ACS - can also be secondary to CHF exacerbation v. gastritis - afebrile, no leukocytosis - Troponin <0.01 x 1- will trend - CXR showed cardiomegaly but no sign of pneumonia or effusions - EKG showed paced rhythm which is similar to previous - Echo 05/2017 showed EF: 27% with dilated and severely hypokinetic LV, mod pulm HTN, dilated LA - Stress test in 05/2017 was similar to previous stress tests without any changes - Will check BNP - Zofran prn nausea - Patient reports she has good appetite- Will start on heart healthy diet - Monitor I&O and daily weight - Pacer was recently interrogated by Dr. Nelson- patient did not report any recent shocks- no need to re-interrogate 2. CAD - Continue home meds: ASA, Plavix, Imdur, Lipitor 3. Dyslipidemia - Continue Zetia and statin 4. HTN - Continue Lopressor, Losartan, Norvasc and amiodarone (also used for sick sinus ) 5. Hx of nephrolithiasis - Continue Ursodiol GI ppx: Protonix DVT ppx: SCDs (pt allergic to heparin- will consider starting Lovenox if patient stays for >2 midnights) Case seen, discussed and reviewed with attending. Lewis Berumen - Date & Time Date: 11/06/17 Time: 11:06 <Dahlia De Guzman - Last Filed: 11/06/17 12:14> Results - Vital Signs Recent Vital Signs: Last Vital Signs Temp 98.8 F 11/06/17 08:15 Pulse 65 11/06/17 11:40 Resp 18 11/06/17 11:40 BP 140/64 11/06/17 11:40 Pulse Ox 100 11/06/17 10:58 - Labs Result Diagrams: 11/06/17 08:50 11/06/17 08:50 Attending/Attestation - Attestation I have personally seen and examined this patient.: Yes I have fully participated in the care of the patient.: Yes I have reviewed all pertinent clinical information: Yes Notes (Text): 11/06/17 12:09 87 year old female with past medical history of CAD s/p CABG s/p stents, systolic CHF s/p PPM s/p AICD, carotid stenosis s/p left stent and hypertension who presents with complaint of chest tightness and epigastric pain. Also reports feeling congested and cough. CXR shows cardiomegaly without effusion or infiltrate. Initial troponin is negative. PBNP elevated at 1190. Will admit and obtain serial cardiac enzymes to rule out ACS. Trial of lasix. Cardiology evaluation is requested. Continue with home medications. is also at bedside and questions were answered. Dahlia De Guzman MD Hospitalist.
[2017-11-06] MEDS ORDERED: Non Formulary Medication (Simvastatin [Zocor] 40 MG) PO SCH (10:45)
--- NOTE | 2017-11-06 22:42 | CARD ---
APPROVED REPORT EKG Measurement Heart [id number] <Conclusion> Electronic atrial pacemaker Left axis deviation Nonspecific intraventricular block Abnormal ECG
[2017-11-07 06:49] LABS: BASO # 0.02 K/mm3 (0.0-2.0); BASO % 0.4 % (0.0-3.0); EOS # 0.1 (0.0-0.7); GRAN # 3.01 (1.4-6.5); GRAN % 59.4 % (50.0-68.0); LYMPH # 1.4 (1.2-3.4); LYMPH % 26.9 % (22.0-35.0); MEAN CELL VOLUME 88.7 fl (80.0-105.0); MEAN CORPUSCULAR HEMOGLOBIN 28.2 pg (25.0-35.0); MEAN CORPUSCULAR HGB CONC 31.8 g/dl (31.0-37.0); MEAN PLATELET VOLUME 10.6 fl (7.0-11.0); MONO # 0.6 (0.1-0.6); MONO % 11.3 % (1.0-6.0); RBC 3.9 10^6/uL (3.5-6.1); RED CELL DISTRIBUTION WIDTH 13.8 % (11.5-14.5); WHITE BLOOD COUNT 5.1 10^3/ul (4.5-11.0)
[2017-11-07 07:10] LABS: ALB/GLOB RATIO 1.5 (1.1-1.8); CALCIUM 9.1 mg/dL (8.4-10.5)
[2017-11-07] MEDS: D3 PO SCH (09:31)
[2017-11-07] MEDS: CALCIUM PO SCH (09:31)
[2017-11-07] MEDS ORDERED: D3 PO SCH (10:00)
[2017-11-07] MEDS ORDERED: CALCIUM PO SCH (10:00)
--- NOTE | 2017-11-07 11:32 | CON ---
DATE: 11/07/2017 HISTORY: The patient is a 87-year-old woman who presents with nausea and intermittent chest discomfort. Her chest discomfort is now resolved, but she does complain of abdominal pain and is nauseous after eating breakfast today. The patient's past medical history is notable for an end-stage ischemic dilated cardiomyopathy. Her stress test performed in 05/2017 revealed no new ischemic changes. Her ejection fraction is 19%. She is currently treated with a defibrillator, biventricular pacer as well as low-dose amiodarone for history of ventricular arrhythmias. She suffers from hypercholesterolemia, documented coronary artery disease and status post coronary artery bypass surgery. SOCIAL HISTORY The patient does not smoke. REVIEW OF SYSTEMS: The 14-point review of systems was reviewed in detail. There is no shortness of breath. No angina, negative edema in the lower extremities. No dizziness and no loss of consciousness. No palpitations. PHYSICAL EXAMINATION: VITAL SIGNS: Blood pressure 139/96, heart rate is in the 60s, normal sinus rhythm. NECK: Negative JVD. LUNGS: Without rales. HEART: S1, S2. EXTREMITIES: Without edema. DATA: EKG shows low voltages and intermittent biventricular pacing. Hemoglobin is 11. Chemistries: BUN and creatinine 32 and 1.6. Troponins are negative x3. IMPRESSION: 1. Nausea and vomiting. 2. No evidence for acute coronary artery syndrome. 3. End-stage ischemic dilated cardiomyopathy with an ejection fraction of 19%. 4. History of coronary artery bypass surgery. 5. Coronary artery disease. 6. History of ventricular arrhythmias, treated with a defibrillator. Given these findings, we will obtain an ultrasound of the abdomen. There is no evidence for acute coronary syndrome. Jose Rabago MD
--- NOTE | 2017-11-07 12:34 | CP.PCM.PN ---
<Sruthi Stout - Last Filed: 11/07/17 14:21> Subjective - Date & Time of Evaluation Date of Evaluation: 11/07/17 Time of Evaluation: 12:33 - Subjective Subjective: Internal Medicine Progress Note: Patient seen and examined at bedside. Per nursing no acute events overnight. Patient complaining of abdominal tightness and occasional nausea. Denies any vomiting. Going for abdominal US today. Denies headaches, dizziness, cp, palpitations, sob, urinary symptoms, changes in bowel habits. Objective - Vital Signs/Intake and Output Vital Signs (last 24 hours): Temp Pulse Resp BP Pulse Ox 97.8 F 60 18 102/48 L 98 11/07/17 12:00 11/07/17 12:00 11/07/17 12:00 11/07/17 12:00 11/07/17 06:00 Intake and Output: 11/07/17 11/07/17 06:59 18:59 Intake Total 680 Output Total 1000 Balance -320 - Medications Medications: Current Medications Acetaminophen (Tylenol 325mg Tab) 650 mg PO Q6H PRN PRN Reason: Fever >100.4 F Aspirin (Ecotrin) 81 mg PO DAILY [facility] Last Admin: 11/07/17 09:30 Dose: 81 mg Atorvastatin Calcium (Lipitor) 20 mg PO DIN [facility] Last Admin: 11/06/17 16:28 Dose: 20 mg Clopidogrel Bisulfate (Plavix) 75 mg PO DAILY [facility] Last Admin: 11/07/17 09:30 Dose: 75 mg Docusate Sodium (Colace) 100 mg PO BID [facility] Last Admin: 11/07/17 09:29 Dose: 100 mg Ezetimibe (Zetia) 10 mg PO DAILY [facility] Last Admin: 11/07/17 09:30 Dose: 10 mg Isosorbide Mononitrate (Imdur) 60 mg PO DAILY [facility] Last Admin: 11/07/17 09:29 Dose: 60 mg Losartan Potassium (Cozaar) 50 mg PO DAILY [facility] Last Admin: 11/07/17 09:30 Dose: 50 mg Metoprolol Tartrate (Lopressor) 25 mg PO TID [facility] Last Admin: 11/07/17 09:30 Dose: 25 mg Non-Formulary Medication (Calcium 1,000 + D3 Caplet) 1 tab PO DAILY [facility] Last Admin: 11/07/17 09:31 Dose: Not Given Ondansetron HCl (Zofran Inj) 4 mg IVP Q6H PRN PRN Reason: Nausea/Vomiting Pantoprazole Sodium (Protonix Ec Tab) 40 mg PO Q12 [facility] Ursodiol (Actigall) 300 mg PO BID [facility] Last Admin: 11/07/17 09:30 Dose: 300 mg - Labs Labs: 11/07/17 05:45 11/07/17 05:45 - Additional Findings Additional findings: - Constitutional Appears: No Acute Distress - Head Exam Head Exam: ATRAUMATIC, NORMAL INSPECTION, NORMOCEPHALIC - Eye Exam Eye Exam: EOMI, Normal appearance, PERRL Pupil Exam: NORMAL ACCOMODATION - ENT Exam ENT Exam: Mucous Membranes Moist - Neck Exam Neck exam: Positive for: Normal Inspection - Respiratory Exam Respiratory Exam: Clear to Auscultation Bilateral, NORMAL BREATHING PATTERN. absent: Rales, Rhonchi, Wheezes - Cardiovascular Exam Cardiovascular Exam: REGULAR RHYTHM, +S1, +S2. absent: Gallop, Rubs, Systolic Murmur - GI/Abdominal Exam GI & Abdominal Exam: Normal Bowel Sounds, Soft. absent: Mass, Rebound, Rigid, Tenderness - Extremities Exam Extremities exam: Positive for: normal inspection. Negative for: calf tenderness, pedal edema - Neurological Exam Neurological exam: Alert, CN II-XII Intact, Oriented x3 - Psychiatric Exam Psychiatric exam: Normal Affect, Normal Mood - Skin Skin Exam: Dry, Warm Assessment and Plan - Assessment and Plan (Free Text) Assessment: This is a 87yo F with PMH CAD s/p 3 stents, CHF (EF~27% in 05/2017), CABG, TIA, sick sinus syndrome s/p pacer and AICD, carotid artery stenosis s/p L stent who was admitted for intermittent epigastric pain x 1 month. Plan: 1. Epigastric pain r/o ACS - Can also be secondary to CHF exacerbation v. gastritis - Afebrile, no leukocytosis - Troponin <0.01 x 3 - CXR showed cardiomegaly but no sign of pneumonia or effusions - EKG showed paced rhythm which is similar to previous - Echo 05/2017 showed EF: 27% with dilated and severely hypokinetic LV, mod pulm HTN, dilated LA - Stress test in 05/2017 was similar to previous stress tests without any changes - BNP 1190 - Patient not clinically fluid overloaded, lasix discontinued at this time - F/U abdominal US - Zofran prn nausea - Monitor I&O and daily weight - Pacer was recently interrogated by Dr. Nelson- patient did not report any recent shocks- no need to re-interrogate 2. CAD - Continue home meds: ASA, Plavix, Imdur, Lipitor 3. Dyslipidemia - Continue Zetia and statin 4. HTN - Continue Lopressor, Losartan, Norvasc and amiodarone (also used for sick sinus ) 5. Hx of nephrolithiasis - Continue Ursodiol 6. Acute Kidney Injury - Cr 1.6 today, baseline 1.2 - Likely medication induced - Will discontinue lasix as patient doesn't appear fluid overloaded at this time - Avoid nephrotoxic agents GI ppx: Protonix DVT ppx: SCDs (pt allergic to heparin- will consider starting Lovenox if patient stays for >2 midnights) Plan discussed with Dr Arevalo <Florence Arevalo - Last Filed: 11/08/17 15:17> Objective - Vital Signs/Intake and Output Vital Signs (last 24 hours): Temp Pulse Resp BP Pulse Ox 97.9 F 61 20 141/62 99 11/08/17 06:00 11/08/17 10:10 11/08/17 06:00 11/08/17 10:10 11/08/17 06:00 Intake and Output: 11/08/17 11/08/17 06:59 18:59 Intake Total 360 Output Total 100 Balance 260 - Labs Labs: 11/08/17 05:30 11/08/17 05:30 Attending/Attestation - Attestation I have personally seen and examined this patient.: Yes I have fully participated in the care of the patient.: Yes I have reviewed all pertinent clinical information, including history, physical exam and plan: Yes Notes (Text): 11/08/17 15:11 Medical record note made by the resident after discussion with my direction and input after the patient was personally seen and examined by me. I have reviewed the chart and agree that the record accurately reflects by personal performance of the history, physical exam, data review, and medical decision-making, in the course for the patient. I have also personally directed the plan of care. 87yo F with PMH CAD s/p 3 stents, CHF with systolic dysfunction (EF~27% in 2016), CABG, TIA, sick sinus syndrome s/p pacer and AICD, carotid artery stenosis s/p L stent who came to ED for epigastric pain.Serial troponins are normal;.Patient is pain free. Cardiology evaluation is appreciated.Abdominal USG was reviewed.Patient has gall stone but no evidence of any cholycystitis or obstruction. BNP was elevated but clinically patient was not in overt heart failure, he was given lasix and creatinin has increased to 1.5.Patient is euvolemic, JVP is not raised.Lung sound are clear.There is no leg edema.We will discontinue Lasix. Management plan was discussed in detail with patient. Education was provided.
--- NOTE | 2017-11-07 15:30 | US ---
HISTORY: Abdominal distention , pain COMPARISON: 01/26/2017 abdominal ultrasound TECHNIQUE: Sonographic evaluation of the abdomen. FINDINGS: LIVER: Measures 13.9 cm. Hepatopedal blood flow. Fatty infiltration manifest ultrasonographically as increased echogenicity of the liver parenchyma. No mass. No intrahepatic bile duct dilatation. GALLBLADDER: Cholelithiasis. Negative study for gallbladder wall thickening, pericholecystic fluid, sonographic Wall's sign. COMMON BILE DUCT: Measures 4.84 mm. No stones. No dilatation. PANCREAS: Unremarkable as visualized. No mass. No ductal dilatation. RIGHT KIDNEY: Measures 4.6 x 8.1cm. Normal echogenicity. No calculus, mass, or hydronephrosis. LEFT KIDNEY: Measures 3.5 x 10.2cm. Normal echogenicity. No calculus, mass, or hydronephrosis. SPLEEN: Normal in size and contour. No mass. AORTA: No aneurysmal dilatation. IVC: Unremarkable. OTHER FINDINGS: None. IMPRESSION: Cholelithiasis. No sonographic evidence of acute cholecystitis. Additional benign and/or incidental findings described above. No significant interval change compared to the prior examination(s).
[2017-11-07] MEDS: Pantoprazole 40 mg EC Tab PO SCH (22:32)
[2017-11-08 01:18] VITALS: RESP 20
[2017-11-08 06:05] VITALS: TEMP 97.9; O2SAT 99
[2017-11-08 06:22] LABS: BASO # 0.03 K/mm3 (0.0-2.0); BASO % 0.5 % (0.0-3.0); EOS # 0.1 (0.0-0.7); GRAN # 3.57 (1.4-6.5); GRAN % 56.2 % (50.0-68.0); HEMOGLOBIN 11.7 g/dL (12.0-16.0); LYMPH % 31.9 % (22.0-35.0); MEAN CELL VOLUME 88.8 fl (80.0-105.0); MEAN CORPUSCULAR HEMOGLOBIN 28.6 pg (25.0-35.0); MEAN CORPUSCULAR HGB CONC 32.2 g/dl (31.0-37.0); MEAN PLATELET VOLUME 10.8 fl (7.0-11.0); MONO # 0.6 (0.1-0.6); MONO % 9.4 % (1.0-6.0); RBC 4.09 10^6/uL (3.5-6.1); RED CELL DISTRIBUTION WIDTH 13.6 % (11.5-14.5); WHITE BLOOD COUNT 6.4 10^3/ul (4.5-11.0)
[2017-11-08 06:45] LABS: ALB/GLOB RATIO 1.4 (1.1-1.8)
[2017-11-08] MEDS: Pantoprazole 40 mg EC Tab PO SCH (10:09)
[2017-11-08] MEDS: D3 PO SCH (10:11)
[2017-11-08] MEDS: CALCIUM PO SCH (10:11)
[2017-11-08 10:14] VITALS: BP 141/62; PULSE 61
--- NOTE | 2017-11-08 10:59 | PN ---
DATE: 11/08/2017 SUBJECTIVE: SUBJECTIVE: The patient's symptoms have completely resolved. PHYSICAL EXAMINATION: VITAL SIGNS: Blood pressure is 141/62, heart rates in the 60s. NECK: Negative JVD. LUNGS: Without rales. HEART: S1 and S2. EXTREMITIES: Without edema. LABORATORY DATA: Reveals troponins are negative x3. BUN and creatinine is 36 and 1.3. IMPRESSION: 1. Stable angina. 2. No evidence for acute coronary syndrome. 3. Ischemic dilated cardiomyopathy. 4. History of coronary artery bypass surgery. 5. Renal insufficiency. 6. History of ventricular arrhythmias. The patient is status post implantable cardioverter-defibrillator. Given these findings, the patient's cardiac status is unchanged and stable. We will discontinue telemetry today. No further cardiac workup is necessary at this time. Outpatient followup has been scheduled. Jose Rabago MD
--- NOTE | 2017-11-08 11:20 | CP.PCM.DIS ---
<Sruthi Stout - Last Filed: 11/08/17 14:47> Provider - Provider Date of Admission: 11/07/17 16:44 Attending physician: Florence Arevalo MD Consults: Cardiology: Hima Time Spent in preparation of Discharge (in minutes): 32 Hospital Course - Lab Results Lab Results: Most Recent Lab Values WBC 6.4 10^3/ul (4.5-11.0) D 11/08/17 05:30 RBC 4.09 10^6/uL (3.5-6.1) 11/08/17 05:30 Hgb 11.7 g/dL (12.0-16.0) L 11/08/17 05:30 Hct 36.3 % (36.0-48.0) 11/08/17 05:30 MCV 88.8 fl (80.0-105.0) 11/08/17 05:30 MCH 28.6 pg (25.0-35.0) 11/08/17 05:30 MCHC 32.2 g/dl (31.0-37.0) 11/08/17 05:30 RDW 13.6 % (11.5-14.5) 11/08/17 05:30 Plt Count 172 10^3/uL (120.0-450.0) 11/08/17 05:30 MPV 10.8 fl (7.0-11.0) 11/08/17 05:30 Gran % 56.2 % (50.0-68.0) 11/08/17 05:30 Lymph % (Auto) 31.9 % (22.0-35.0) 11/08/17 05:30 [place] % (Auto) 9.4 % (1.0-6.0) H 11/08/17 05:30 Eos % (Auto) 2.0 % (1.5-5.0) 11/08/17 05:30 Baso % (Auto) 0.5 % (0.0-3.0) 11/08/17 05:30 Gran # 3.57 (1.4-6.5) 11/08/17 05:30 Lymph # (Auto) 2.0 (1.2-3.4) 11/08/17 05:30 [place] # (Auto) 0.6 (0.1-0.6) 11/08/17 05:30 Eos # (Auto) 0.1 (0.0-0.7) 11/08/17 05:30 Baso # (Auto) 0.03 K/mm3 (0.0-2.0) 11/08/17 05:30 Sodium 140 mmol/L (132-148) 11/08/17 05:30 Potassium 4.4 mmol/L (3.6-5.0) 11/08/17 05:30 Chloride 101 mmol/L (98-107) 11/08/17 05:30 Carbon Dioxide 30 mmol/L (21-33) 11/08/17 05:30 Anion Gap 13 (10-20) 11/08/17 05:30 BUN 36 mg/dL (7-21) H 11/08/17 05:30 Creatinine 1.8 mg/dl (0.7-1.2) H 11/08/17 05:30 Est GFR ( Amer) 32 11/08/17 05:30 Est GFR (Non-Af Amer) 26 11/08/17 05:30 Random Glucose 96 mg/dL (70-110) 11/08/17 05:30 Calcium 9.0 mg/dL (8.4-10.5) 11/08/17 05:30 Magnesium 1.9 mg/dL (1.7-2.2) 11/06/17 08:50 Total Bilirubin 0.5 mg/dL (0.2-1.3) 11/08/17 05:30 AST 28 U/L (14-36) 11/08/17 05:30 ALT 30 U/L (7-56) 11/08/17 05:30 Alkaline Phosphatase 55 U/L (38-126) 11/08/17 05:30 Lactate Dehydrogenase 560 U/L (333-699) 11/06/17 08:50 Total Creatine Kinase 68 U/L (35-230) 11/06/17 08:50 Troponin I 0.01 ng/mL 11/06/17 20:05 NT-Pro-B Natriuret Pep 1190 pg/mL (0-450) H 11/06/17 08:50 Total Protein 6.8 g/dL (5.8-8.3) 11/08/17 05:30 Albumin 4.0 g/dL (3.0-4.8) 11/08/17 05:30 Globulin 2.8 gm/dL 11/08/17 05:30 Albumin/Globulin Ratio 1.4 (1.1-1.8) 11/08/17 05:30 - Hospital Course Hospital Course: History of present illness: This is a 87yo F with PMH CAD s/p 3 stents, CHF (EF~27% in 05/2017), CABG, TIA, sick sinus syndrome s/p pacer and AICD, carotid artery stenosis s/p L stent who came to ED for epigastric pain. Patient reports she has had this epigastric pain on and off for about 1 month. She was seen by her EP Dr. Nelson who interrogated her AICD and reports it could be secondary to her CHF. Patient states that her stomach feels distended and she coughs up white phlegm at times , but denies leg swelling, chest pain, shortness of breath, fever or chills, nausea/vomiting/diarrhea. The pain does not radiate anywhere. She decided to come in today because she could not sleep last night because of the discomfort. She uses 4 pillows at night which is her normal and reports having a good appetite and good BMs. She walked several blocks yesterday without feeling short of breath. She denies sick contacts or recent travel. Patient was given Pepcid and Maalox in ED without any relief. Hospital Course: Patient was admitted to telemetry. EKG showed paced rhythm, Troponins were negative x 3. Cardiology was consulted. ACS was ruled out. BNP was elevated at 1190. CXR showed cardiomegaly. Patient was started on IV Lasix. Lasix was discontinued as patient showed no clinical signs fluid overload. She had ANDREW which was likely due to over diuresis. Patient went for abdominal ultrasound that showed cholithiasis. Epigastric tenderness improved. On day of discharge, patient was doing well. She was ambulating and tolerating diet. Epigastric discomfort resolved. Patient to be discharged home. She will have repeat BMP on to monitor renal function. She will also be following up with Dr Rodriguez on Tuesday as scheduled. Discharge Diagnosis: Epigastric discomfort 2/2 Cholithiasis Discharge Exam - Head Exam Head Exam: ATRAUMATIC, NORMAL INSPECTION, NORMOCEPHALIC - Eye Exam Eye Exam: EOMI, Normal appearance Pupil Exam: NORMAL ACCOMODATION - ENT Exam ENT Exam: Mucous Membranes Moist - Respiratory Exam Respiratory Exam: Clear to PA & Lateral, NORMAL BREATHING PATTERN, UNREMARKABLE. absent: Rhonchi, Wheezes, Respiratory Distress - Cardiovascular Exam Cardiovascular Exam: REGULAR RHYTHM, +S1, +S2 - GI/Abdominal Exam GI & Abdominal Exam: Normal Bowel Sounds, Soft. absent: Tenderness - Extremities Exam Extremities exam: normal inspection, pedal pulses present - Neurological Exam Neurological exam: Alert, Oriented x3 - Psychiatric Exam Psychiatric exam: Normal Affect, Normal Mood - Skin Skin Exam: Dry, Normal Color, Warm Discharge Plan - Follow Up Plan Condition: FAIR Disposition: HOME/ ROUTINE Instructions: Heart Healthy Diet, Chest Pain (DC) Additional Instructions: 1. Patient is clear for discharge home 2. Please follow up with Dr Rodriguez on Tuesday as scheduled at 1:30pm 3. Patient will need repeat BMP morning to monitor renal function 4. Follow up with Cardiology: Dr Rabago as scheduled. 5. If symptoms return or worsen please call 911 or visit your nearest emergency medical facility. Referrals: Jai Rodriguez MD [Family Provider] - <Florence Arevalo - Last Filed: 11/08/17 15:24> Provider - Provider Date of Admission: 11/07/17 16:44 Attending physician: Florence Arevalo MD Hospital Course - Lab Results Lab Results: Most Recent Lab Values WBC 6.4 10^3/ul (4.5-11.0) D 11/08/17 05:30 RBC 4.09 10^6/uL (3.5-6.1) 11/08/17 05:30 Hgb 11.7 g/dL (12.0-16.0) L 11/08/17 05:30 Hct 36.3 % (36.0-48.0) 11/08/17 05:30 MCV 88.8 fl (80.0-105.0) 11/08/17 05:30 MCH 28.6 pg (25.0-35.0) 11/08/17 05:30 MCHC 32.2 g/dl (31.0-37.0) 11/08/17 05:30 RDW 13.6 % (11.5-14.5) 11/08/17 05:30 Plt Count 172 10^3/uL (120.0-450.0) 11/08/17 05:30 MPV 10.8 fl (7.0-11.0) 11/08/17 05:30 Gran % 56.2 % (50.0-68.0) 11/08/17 05:30 Lymph % (Auto) 31.9 % (22.0-35.0) 11/08/17 05:30 [place] % (Auto) 9.4 % (1.0-6.0) H 11/08/17 05:30 Eos % (Auto) 2.0 % (1.5-5.0) 11/08/17 05:30 Baso % (Auto) 0.5 % (0.0-3.0) 11/08/17 05:30 Gran # 3.57 (1.4-6.5) 11/08/17 05:30 Lymph # (Auto) 2.0 (1.2-3.4) 11/08/17 05:30 [place] # (Auto) 0.6 (0.1-0.6) 11/08/17 05:30 Eos # (Auto) 0.1 (0.0-0.7) 11/08/17 05:30 Baso # (Auto) 0.03 K/mm3 (0.0-2.0) 11/08/17 05:30 Sodium 140 mmol/L (132-148) 11/08/17 05:30 Potassium 4.4 mmol/L (3.6-5.0) 11/08/17 05:30 Chloride 101 mmol/L (98-107) 11/08/17 05:30 Carbon Dioxide 30 mmol/L (21-33) 11/08/17 05:30 Anion Gap 13 (10-20) 11/08/17 05:30 BUN 36 mg/dL (7-21) H 11/08/17 05:30 Creatinine 1.8 mg/dl (0.7-1.2) H 11/08/17 05:30 Est GFR ( Amer) 32 11/08/17 05:30 Est GFR (Non-Af Amer) 26 11/08/17 05:30 Random Glucose 96 mg/dL (70-110) 11/08/17 05:30 Calcium 9.0 mg/dL (8.4-10.5) 11/08/17 05:30 Magnesium 1.9 mg/dL (1.7-2.2) 11/06/17 08:50 Total Bilirubin 0.5 mg/dL (0.2-1.3) 11/08/17 05:30 AST 28 U/L (14-36) 11/08/17 05:30 ALT 30 U/L (7-56) 11/08/17 05:30 Alkaline Phosphatase 55 U/L (38-126) 11/08/17 05:30 Lactate Dehydrogenase 560 U/L (333-699) 11/06/17 08:50 Total Creatine Kinase 68 U/L (35-230) 11/06/17 08:50 Troponin I 0.01 ng/mL 11/06/17 20:05 NT-Pro-B Natriuret Pep 1190 pg/mL (0-450) H 11/06/17 08:50 Total Protein 6.8 g/dL (5.8-8.3) 11/08/17 05:30 Albumin 4.0 g/dL (3.0-4.8) 11/08/17 05:30 Globulin 2.8 gm/dL 11/08/17 05:30 Albumin/Globulin Ratio 1.4 (1.1-1.8) 11/08/17 05:30 Attending/Attestation - Attestation I have personally seen and examined this patient.: Yes I have fully participated in the care of the patient.: Yes I have reviewed all pertinent clinical information, including history, physical exam and plan: Yes Notes (Text): 11/08/17 15:20 Medical record note made by the resident after discussion with my direction and input after the patient was personally seen and examined by me. I have reviewed the chart and agree that the record accurately reflects by personal performance of the history, physical exam, data review, and medical decision-making, in the course for the patient. I have also personally directed the plan of care. 87yo F with PMH CAD s/p 3 stents, CHF with systolic dysfunction (EF~27% in 2016), CABG, TIA, sick sinus syndrome s/p pacer and AICD, PVD who came to ED for epigastric pain.Serial troponins are normal;.Patient is pain free.Abdominal USG was reviewed.Patient has gall stone but no evidence of any cholycystitis or obstruction.Patient is tolerating diet.Cardiology evaluation is appreciated. BNP was elevated but clinically patient was not in overt heart failure, she was given lasix and creatinin has increased to 1.8.Patient is euvolemic, JVP is not raised.Lung sound are clear.There is no leg edema.Lasix has been discontinued.Patient is ambulatory.She wants to be discharged home.She will have repeat BMP in 2 days and will follow up with her PMD on Tuesday.She will benefit with out patient Nephrology consult if renal function will not improve. Management plan was discussed in detail with patient. Education was provided.
--- NOTE | 2017-11-09 15:02 | PQF CHF ---
11/09/17 Dr. Janette Arevalo, " CHF with systolic dysfunction "is documented on the discharge summary. Please indicate whether this is acute, chonic, or both. Thank you. Clarification of your documentation is requested to better reflect the severity of illness and intensity of treatment of your patient. Indicators present [] Diagnosis of CHF and/or history of CHF [] BNP > 200 [] Imaging Finding of Pulmonary Edema /Pleural Effusions [] Fluid/Volume Overload [] Pitting edema [] Ejection Fraction < 40% (Indicative of Systolic Heart Failure) [] Ejection Fraction > 40% (Indicative of Diastolic Heart Failure) [] Dyspnea / Orthopenea / Paroxysmal Nocturnal Dyspnea [] Other: Location in the medical record that reflects the above clinical findings: [] Treatment Provided: [] PHYSICIAN'S RESPONSE Patient has chronic systolic heart failure but clinical was not in acute on chronic CHF. there was no JVP, lung sounds were clear and there was no leg edema Based on your medical judgment of the clinical indicators outlined above, are you treating this patient for a known or suspected: [] Acute CHF [] Systolic [] Diastolic [] Combined [] Chronic CHF [] Systolic [] Diastolic [] Combined [] Acute on Chronic CHF []Systolic [] Diastolic [] Combined [] CHF due hypertension [] Acute systolic []Chronic systolic [] Acute/ chronic systolic [] Other, please indicate: [] [] If Unable to Determine, please check the box, sign and date. Present On Admission (POA) Indicator: [] Present at the time of admission [] Not present at the time of admission [] Clinically Undetermined In responding to this query, please exercise your independent professional judgment. The fact that a question is asked does not imply that any particular answer is desired or expected. Thank you for your clarification on this documentation. If you have any questions please call:[ ] * Thank you, [ ] scientific linguist KEMAR
== END 2017-11-08 13:43 | disposition home or self-care (01) | DRG 303 ==
LOC: ED 08:14 → ERH 10:02 → 2RNO 11:39 → OBSVTOIN 11-07 16:44
PROVIDERS: ADMIT Internal Medicine; ATTEND Internal Medicine
DX: I25.118 Atherosclerotic heart disease of native coronary artery with other forms of angina pectoris (principal); N17.9 Acute kidney failure, unspecified; I50.22 Chronic systolic (congestive) heart failure; I42.0 Dilated cardiomyopathy; I11.0 Hypertensive heart disease with heart failure; E78.00 Pure hypercholesterolemia, unspecified; E78.5 Hyperlipidemia, unspecified; I25.2 Old myocardial infarction; I25.5 Ischemic cardiomyopathy; I49.5 Sick sinus syndrome; I65.29 Occlusion and stenosis of unspecified carotid artery; I70.1 Atherosclerosis of renal artery; I73.9 Peripheral vascular disease, unspecified; K80.20 Calculus of gallbladder without cholecystitis without obstruction; M81.0 Age-related osteoporosis without current pathological fracture; T50.2X5A Adverse effect of carbonic-anhydrase inhibitors, benzothiadiazides and other diuretics, initial encounter; Z85.820 Personal history of malignant melanoma of skin; Z86.73 Personal history of transient ischemic attack (TIA), and cerebral infarction without residual deficits; Z87.442 Personal history of urinary calculi; Z87.891 Personal history of nicotine dependence; Z95.0 Presence of cardiac pacemaker; Z95.1 Presence of aortocoronary bypass graft; Z95.5 Presence of coronary angioplasty implant and graft; Z95.810 Presence of automatic (implantable) cardiac defibrillator; Z88.8 Allergy status to other drugs, medicaments and biological substances; Z98.42 Cataract extraction status, left eye; Z98.41 Cataract extraction status, right eye; Z96.1 Presence of intraocular lens; R10.13 Epigastric pain; I27.20 Pulmonary hypertension, unspecified

== ENCOUNTER 2017-11-14 03:18 | Emergency (ER) | payer MEDICARE ==
[2017-11-14 03:18] VITALS: PULSE 150; BMI 23.1
--- NOTE | 2017-11-14 03:33 | ED PDOC ---
Arrival/HPI - General Time Seen by Provider: 11/14/17 03:26 Historian: Patient, EMS - History of Present Illness Narrative History of Present Illness (Text): 11/14/17 03:30 Grace Vu is an 87 year old female, whose past medical history includes CAD with 3 cardiac stents, CABG, sick sinus syndrome s/p pacemaker/ defibrillator, hypertension, TIA, and osteoporosis, who presents to the emergency department brought in by EMS after her pacemaker bedside alarm went off tonight. Patient states she feels fine with no discharge from her pacemaker/ defibrillator but was concerned and came in for further evaluation. Patient denies any fevers, chills, chest pain, shortness of breath, abdominal pain, nausea, vomiting, diarrhea, back pain, neck pain, urinary symptoms, headache, dizziness, or any other complaint. Symptom Onset: Gradual Symptom Course: Unchanged Activities at Onset: Light Context: Home Past Medical History - Provider Review Nursing Documentation Reviewed: Yes - Infectious Disease Hx of Infectious Diseases: None - Tetanus Immunization Tetanus Immunization: Unknown - Cardiac Hx Cardiac Disorders: Yes (TRIPLE BYPASS,CAROTID STENOSIS,CAD) Hx Cardiac Arrhythmia: Yes Hx Hypertension: Yes Other/Comment: Pacemaker/Defib - Pulmonary Hx Respiratory Disorders: Yes Hx Bronchitis: Yes - Neurological Hx Transient Ischemic Attacks (TIA): Yes - HEENT Hx HEENT Disorder: Yes Hx Cataracts: Yes (WITH LENS IMPLANT) - Renal Hx Kidney Stones: Yes - Endocrine/Metabolic Hx Endocrine Disorders: No - Hematological/Oncological Hx Blood Transfusions: No Hx Blood Transfusion Reaction: No - Integumentary Hx Dermatological Disorder: Yes Hx Melanoma: Yes (NOSE WITH SKIN GRAFT AND CHEEKS AND FOREHEAD SKIN CA) - Musculoskeletal/Rheumatological Hx Falls: Yes - Gastrointestinal Hx Gastrointestinal Disorders: Yes Hx Gall Bladder Disease: Yes (GALLSTONES) - Genitourinary/Gynecological Other/Comment: stent in the kidney - Psychiatric Hx Psychophysiologic Disorder: No Hx Substance Use: No - Past Surgical History Past Surgical History: Non-Contributing - Surgical History Hx Coronary Stent: Yes (x3) Other/Comment: pacemaker/defib, kidney stent - Anesthesia Hx Anesthesia: Yes - Suicidal Assessment Feels Threatened In Home Enviroment: No Family/Social History - Physician Review Nursing Documentation Reviewed: Yes Family/Social History: Unknown Family HX Smoking Status: Former Smoker Hx Alcohol Use: No Hx Substance Use: No Hx Substance Use Treatment: No Allergies/Home Meds Allergies/Adverse Reactions: Allergies heparin Allergy (Verified 09/05/17 14:46) vaginal bleed, chills Home Medications: Home Meds Medication Instructions Recorded Confirmed Aspirin [Ecotrin] 81 mg PO DAILY 06/07/17 11/14/17 Clopidogrel [Plavix] 75 mg PO DAILY 06/07/17 11/14/17 Ezetimibe [Zetia] 10 mg PO DAILY 06/07/17 11/14/17 Isosorbide Mononitrate [Imdur] 60 mg PO DAILY 06/07/17 11/14/17 Losartan Potassium 50 mg PO DAILY 06/07/17 11/14/17 Metoprolol Tartrate [Lopressor] 25 mg PO TID 06/07/17 11/14/17 Simvastatin [Zocor] 40 mg PO DAILY 06/07/17 11/14/17 Ursodiol [Actigall] 300 mg PO BID 06/07/17 11/14/17 Calcium 1,000 + D3 Caplet 1 tab PO DAILY 09/05/17 11/14/17 Denosumab [Prolia] 60 mg SC Q180D 09/05/17 11/14/17 Amiodarone [Cordarone] 200 mg PO DAILY 11/06/17 11/14/17 amLODIPine [Norvasc] 5 mg PO DAILY 11/06/17 11/14/17 Review of Systems - Physician Review All systems were reviewed & negative as marked: Yes - Review of Systems Constitutional: Normal. absent: Fevers Eyes: Normal ENT: Normal Respiratory: Normal. absent: SOB, Cough Cardiovascular: Normal. absent: Chest Pain Gastrointestinal: Normal. absent: Abdominal Pain, Diarrhea, Nausea, Vomiting Genitourinary Female: Normal. absent: Dysuria, Frequency, Hematuria, Urine Output Changes Musculoskeletal: Normal. absent: Back Pain, Neck Pain Skin: Normal. absent: Rash Neurological: Normal. absent: Headache, Dizziness Endocrine: Normal Hemo/Lymphatic: Normal Psychiatric: Normal Physical Exam Vital Signs Reviewed: Yes Vital Signs Temp Pulse Resp BP Pulse Ox 11/14/17 03:31 97.5 F L 77 15 147/64 98 Temperature: Afebrile Blood Pressure: Normal Pulse: Regular Respiratory Rate: Normal Appearance: Positive for: Well-Appearing, Non-Toxic, Comfortable Pain Distress: None Mental Status: Positive for: Alert and Oriented X 3 - Systems Exam Head: Present: Atraumatic, Normocephalic Pupils: Present: PERRL Extroacular Muscles: Present: EOMI Conjunctiva: Present: Normal Mouth: Present: Moist Mucous Membranes Neck: Present: Normal Range of Motion Respiratory/Chest: Present: Clear to Auscultation, Good Air Exchange. No: Respiratory Distress, Accessory Muscle Use Cardiovascular: Present: Regular Rate and Rhythm, Normal S1, S2. No: Murmurs Abdomen: No: Tenderness, Distention, Peritoneal Signs Back: Present: Normal Inspection Upper Extremity: Present: Normal Inspection. No: Cyanosis, Edema Lower Extremity: Present: Normal Inspection. No: Edema Neurological: Present: GCS=15, CN II-XII Intact, Speech Normal Skin: Present: Warm, Dry, Normal Color. No: Rashes Psychiatric: Present: Alert, Oriented x 3, Normal Insight, Normal Concentration Medical Decision Making ED Course and Treatment: 11/14/17 03:30 Impression: 87 year old female presents after pacemaker bedside alarm went off tonight. Plan: -- EKG -- CXR -- Labs, cardiac enzymes -- Reassess and disposition Prior Visits: Notes and results from previous visits were reviewed. On 11/06/2017, pt was seen in the emergency department for epigastric pain and chest tightness. Pt was admitted to the hospital for further evaluation. Progress Notes: [employer] pacemaker interrogated on arrival to emergency department. 11/14/17 03:42 Reviewed EKG, NSR at 64 bpm. LAD. Non-specific IVCD. 11/14/17 03:49 CXR reviewed, shows no acute processes. 11/14/17 04:25 Spoke with [employer] outside sales representative, who analyzed pt's pacemaker interrogation, states all is normal. - Lab Interpretations Lab Results: 11/14/17 03:30 11/14/17 03:30 Lab Results 11/14/17 03:30: WBC 5.1 D, RBC 3.96, Hgb 11.5 L, Hct 34.6 L, MCV 87.4, MCH 29.0 , MCHC 33.2, RDW 13.3, Plt Count 173, MPV 10.2 11/14/17 03:30: Sodium 146, Potassium 4.1, Chloride 107, Carbon Dioxide 26, Anion Gap 17, BUN 29 H, Creatinine 1.3 H, Est GFR ( Amer) 47, Est GFR ( Non-Af Amer) 39, Random Glucose 123 H, Calcium 10.0, Total Bilirubin 0.5, AST 28 , ALT 22, Alkaline Phosphatase 57, Lactate Dehydrogenase 523, Total Creatine Kinase 47, Troponin I < 0.01, Total Protein 7.0, Albumin 4.3, Globulin 2.7, Albumin/Globulin Ratio 1.6 11/14/17 03:30: PT 11.2, INR 0.98, APTT 26.4 I have reviewed the lab results: Yes - RAD Interpretation Radiology Orders: 11/14/17 03:34 CHEST PORTABLE [RAD] Stat Reagent Tender Helper: ED Physician - EKG Interpretation Interpreted by ED Physician: Yes Type: 12 lead EKG - Scribe Statement The provider has reviewed the documentation as recorded by the Constance Guerrier Provider Scribe Attestation: All medical record entries made by the Alexibsusan were at my direction and personally dictated by me. I have reviewed the chart and agree that the record accurately reflects my personal performance of the history, physical exam, medical decision making, and the department course for this patient. I have also personally directed, reviewed, and agree with the discharge instructions and disposition. Disposition/Present on Arrival - Present on Arrival Any Indicators Present on Arrival: No History of DVT/PE: No History of Uncontrolled Diabetes: No Urinary Catheter: No History Surgical Site Infection Following: None - Disposition Have Diagnosis and Disposition been Completed?: Yes Diagnosis: Encounter for interrogation of cardiac defibrillator, Encounter for interrogation of cardiac pacemaker Disposition: HOME/ ROUTINE Disposition Time: 05:11 Patient Plan: Discharge Condition: GOOD Discharge Instructions (ExitCare): Pacemaker Check Additional Instructions: Follow up with your doctor this week
[2017-11-14 03:34] VITALS: TEMP 97.5; O2SAT 98
[2017-11-14 03:47] LABS: HEMOGLOBIN 11.5 g/dL (12.0-16.0); MEAN CELL VOLUME 87.4 fl (80.0-105.0); MEAN CORPUSCULAR HGB CONC 33.2 g/dl (31.0-37.0); MEAN PLATELET VOLUME 10.2 fl (7.0-11.0); RBC 3.96 10^6/uL (3.5-6.1); RED CELL DISTRIBUTION WIDTH 13.3 % (11.5-14.5); WHITE BLOOD COUNT 5.1 10^3/ul (4.5-11.0)
[2017-11-14 04:08] LABS: TROPONIN I < 0.01 ng/mL
[2017-11-14 04:31] LABS: INR 0.98 (0.93-1.08); PARTIAL THROMBOPLASTIN TIME 26.4 Seconds (25.1-36.5); PROTHROMBIN TIME 11.2 SECONDS (9.4-12.5)
[2017-11-14 04:33] LABS: ALB/GLOB RATIO 1.6 (1.1-1.8); ALBUMIN 4.3 g/dL (3.0-4.8); ALT/SGPT 22 U/L (7-56); AST/SGOT 28 U/L (14-36); BLOOD UREA NITROGEN 29 mg/dL (7-21); GFR AFRICAN-AMERICAN 47; GFR NON-AFRICAN AMERICAN 39
[2017-11-14 05:52] VITALS: BP 135/68; PULSE 63; RESP 18
--- NOTE | 2017-11-14 08:56 | RAD ---
HISTORY: fever COMPARISON: 11/06/2017 FINDINGS: LUNGS: No active pulmonary disease. PLEURA: No significant pleural effusion identified, no pneumothorax apparent. CARDIOVASCULAR: Normal. OSSEOUS STRUCTURES: Sternal wires VISUALIZED UPPER ABDOMEN: Normal. OTHER FINDINGS: Pacemaker IMPRESSION: No active disease.
--- NOTE | 2017-11-14 11:34 | CARD ---
APPROVED REPORT EKG Measurement Heart [id number] <Conclusion> Normal sinus rhythm Left axis deviation/LAHB Nonspecific intraventricular block STTW changes Prolonged QTc
== END 2017-11-14 05:40 | disposition home or self-care (01) ==
LOC: ED 03:18
DX: Z45.018 Encounter for adjustment and management of other part of cardiac pacemaker (principal); I25.10 Atherosclerotic heart disease of native coronary artery without angina pectoris; I49.9 Cardiac arrhythmia, unspecified; I10 Essential (primary) hypertension; Z86.73 Personal history of transient ischemic attack (TIA), and cerebral infarction without residual deficits; Z95.1 Presence of aortocoronary bypass graft; Z87.891 Personal history of nicotine dependence

== ENCOUNTER 2018-02-08 12:16 | Emergency (ER) | payer MEDICARE ==
[2018-02-08 12:16] VITALS: PULSE 150; BMI 23.1
[2018-02-08 12:32] VITALS: RESP 18; O2SAT 98
--- NOTE | 2018-02-08 12:42 | ED PDOC ---
Arrival/HPI - General Chief Complaint: Finger,Hand,&Wrist Time Seen by Provider: 02/08/18 12:32 Historian: Patient - History of Present Illness Narrative History of Present Illness (Text): 02/08/18 12:33 87 y/o female, pmh including htn/hld/a.fibb, allergic to heparin but taking aspirin and plavix, c/o lt. wrist pain s/p tripped and fall at home yesterday. Pt. stated that she tripped, landed on the lt. wrist, no LOC, no chest pain/ shortness of breath/numbness/tingling/night sweat, no abdominal or pelvic pain, no hematuria, no skin brusing on the body except lt. wrist pain, no other medical or psychological complaints. Pt. is able to recall the whole event. Past Medical History - Provider Review Nursing Documentation Reviewed: Yes - Infectious Disease Hx of Infectious Diseases: None - Tetanus Immunization Tetanus Immunization: Unknown - Reproductive Menopause: Yes - Cardiac Hx Cardiac Disorders: Yes (TRIPLE BYPASS,CAROTID STENOSIS,CAD) Hx Cardiac Arrhythmia: Yes Hx Hypertension: Yes Other/Comment: Pacemaker/Defib - Pulmonary Hx Respiratory Disorders: Yes Hx Bronchitis: Yes - Neurological Hx Transient Ischemic Attacks (TIA): Yes - HEENT Hx HEENT Disorder: Yes Hx Cataracts: Yes (WITH LENS IMPLANT) - Renal Other/Comment: kidney stent - Endocrine/Metabolic Hx Endocrine Disorders: No - Hematological/Oncological Hx Blood Transfusions: No Hx Blood Transfusion Reaction: No - Integumentary Hx Dermatological Disorder: Yes Hx Melanoma: Yes (NOSE WITH SKIN GRAFT AND CHEEKS AND FOREHEAD SKIN CA) - Musculoskeletal/Rheumatological Hx Falls: Yes - Gastrointestinal Hx Gastrointestinal Disorders: Yes Hx Gall Bladder Disease: Yes (GALLSTONES) - Genitourinary/Gynecological Other/Comment: stent in the kidney - Psychiatric Hx Psychophysiologic Disorder: No Hx Substance Use: No - Past Surgical History Past Surgical History: Non-Contributing - Surgical History Hx Coronary Stent: Yes (x3) Other/Comment: pacemaker/defib, kidney stent - Anesthesia Hx Anesthesia: Yes - Suicidal Assessment Feels Threatened In Home Enviroment: No Family/Social History - Physician Review Nursing Documentation Reviewed: Yes Family/Social History: Unknown Family HX Smoking Status: Former Smoker Hx Alcohol Use: No Hx Substance Use: No Hx Substance Use Treatment: No Allergies/Home Meds Allergies/Adverse Reactions: Allergies heparin Allergy (Verified 09/05/17 14:46) vaginal bleed, chills Home Medications: Home Meds Medication Instructions Recorded Confirmed Aspirin [Ecotrin] 81 mg PO DAILY 06/07/17 11/14/17 Clopidogrel [Plavix] 75 mg PO DAILY 06/07/17 11/14/17 Ezetimibe [Zetia] 10 mg PO DAILY 06/07/17 11/14/17 Isosorbide Mononitrate [Imdur] 60 mg PO DAILY 06/07/17 11/14/17 Losartan Potassium 50 mg PO DAILY 06/07/17 11/14/17 Metoprolol Tartrate [Lopressor] 25 mg PO TID 06/07/17 11/14/17 Simvastatin [Zocor] 40 mg PO DAILY 06/07/17 11/14/17 Ursodiol [Actigall] 300 mg PO BID 06/07/17 11/14/17 Calcium 1,000 + D3 Caplet 1 tab PO DAILY 09/05/17 11/14/17 Denosumab [Prolia] 60 mg SC Q180D 09/05/17 11/14/17 Amiodarone [Cordarone] 200 mg PO DAILY 11/06/17 11/14/17 amLODIPine [Norvasc] 5 mg PO DAILY 11/06/17 11/14/17 Review of Systems - Review of Systems Constitutional: absent: Fatigue, Fevers Eyes: absent: Vision Changes ENT: absent: Hearing Changes Respiratory: absent: SOB, Cough Cardiovascular: absent: Chest Pain Gastrointestinal: absent: Abdominal Pain, Nausea, Vomiting Musculoskeletal: Arthralgias. absent: Back Pain, Neck Pain, Joint Swelling, Myalgias Skin: absent: Rash, Pruritis, Skin Lesions Neurological: absent: Headache, Dizziness Psychiatric: absent: Anxiety, Depression, Suicidal Ideation Physical Exam Vital Signs Reviewed: Yes Vital Signs Temp Pulse Resp BP Pulse Ox 02/08/18 12:30 98.4 F 75 18 133/64 98 Temperature: Afebrile Blood Pressure: Normal Pulse: Regular Respiratory Rate: Normal Appearance: Positive for: Well-Appearing, Non-Toxic, Comfortable Pain Distress: Mild Mental Status: Positive for: Alert and Oriented X 3 - Systems Exam Head: Present: Atraumatic, Normocephalic. No: Tenderness, Contusion, Swelling, Ecchymosis, Abrasion, Laceration, Other Pupils: Present: PERRL Extroacular Muscles: Present: EOMI Conjunctiva: Present: Normal Ears: Present: NORMAL TM, Normal Canal. No: Erythema Mouth: Present: Moist Mucous Membranes, Normal Lips, Normal Tounge, Normal Teeth. No: Drooling, Trismus Pharnyx: Present: Normal. No: ERYTHEMA, EXUDATE, TONSILS ENLARGED Nose (External): Present: Atraumatic. No: Abrasion, Contusion, Laceration Nose (Internal): Present: Normal Inspection, No Active Bleeding. No: Rhinorrhea , Septal Hematoma, Epistaxis Neck: Present: Normal Range of Motion, Trachea Midline. No: Meningeal Signs, MIDLINE TENDERNESS, Paraspinal Tenderness, Lymphadenopathy Respiratory/Chest: Present: Clear to Auscultation, Good Air Exchange. No: Respiratory Distress, Accessory Muscle Use Cardiovascular: Present: Regular Rate and Rhythm, Normal S1, S2. No: Murmurs Abdomen: No: Tenderness, Distention, Peritoneal Signs, Rebound, Guarding Back: Present: Normal Inspection Upper Extremity: Present: Normal Inspection, Other (Lt. wrist: +ttp on the distal radial region with mild swelling, no deformity, no scaphoid tenderness, skin intact, no laceration or abrasion, FROM without limitation, sensation intact, motor 5/5, neurovascular intact, skin intact. ). No: Cyanosis, Edema Lower Extremity: Present: Normal Inspection, NORMAL PULSES, Normal ROM, Neurovascularly Intact, Capillary Refill < 2 s. No: Edema, CALF TENDERNESS, Tenderness, Swelling, Deformity Neurological: Present: GCS=15, CN II-XII Intact, Speech Normal, Motor Func Grossly Intact, Normal Cerebellar Funct, Gait Normal, Memory Normal Skin: Present: Warm, Dry, Normal Color. No: Rashes Psychiatric: Present: Alert, Oriented x 3, Normal Insight, Normal Concentration Medical Decision Making ED Course and Treatment: 02/08/18 12:48 -Lt. wrist xray -Ct head -Observe and reassess 02/08/18 14:22 -CT Head: No acute intracranial findings -Lt. wrist xray: Normal left wrist radiographs. -Pt. feels well now, krystin wrap applied with neurovascular intact. -Discharge home with krystin wrap, take tylenol for pain as needed, follow up with your own pmd and orthopedic within 2 days, return to the ER for any new or worsening signs or symptoms. - RAD Interpretation Radiology Orders: 02/08/18 12:42 HEAD W/O CONTRAST [CT] Stat WRIST, LEFT 3 VIEWS [RAD] Stat CT Head: FINDINGS: HEMORRHAGE: No intracranial hemorrhage. BRAIN: No mass effect or edema. No atrophy or chronic microvascular ischemic changes. VENTRICLES: Unremarkable. No hydrocephalus. CALVARIUM: Unremarkable. PARANASAL SINUSES: Unremarkable as visualized. No significant inflammatory changes. MASTOID AIR CELLS: Unremarkable as visualized. No inflammatory changes. OTHER FINDINGS: None. IMPRESSION: No acute intracranial findings Lt. wrist xray: HISTORY: lt. wrist injury from fall, distal radial region COMPARISON: None. FINDINGS: BONES: Normal. No fracture. JOINTS: Normal. No dislocation. SOFT TISSUES: Normal. OTHER FINDINGS: None. IMPRESSION: Normal left wrist radiographs. Hand Stripper: Radiologist - PA / TEACHER COUNSELOR / Resident Statement / has reviewed & agrees with the documentation as recorded. Disposition/Present on Arrival - Present on Arrival Any Indicators Present on Arrival: No History of DVT/PE: No History of Uncontrolled Diabetes: No Urinary Catheter: No History of Decub. Ulcer: No History Surgical Site Infection Following: None - Disposition Have Diagnosis and Disposition been Completed?: Yes Diagnosis: Wrist pain, Accidental fall Disposition: HOME/ ROUTINE Disposition Time: 13:59 Patient Plan: Discharge Condition: GOOD Additional Instructions: Discharge home with krystin wrap, take tylenol for pain as needed, follow up with your own pmd and orthopedic within 2 days, return to the ER for any new or worsening signs or symptoms. Referrals: Jai Rodriguez MD [Primary Care Provider] - Follow up with primary Jamel Moscoso DO [Staff Provider] - Follow up with primary Forms: [employer] (Kinyarwanda), WORK NOTE
--- NOTE | 2018-02-08 13:57 | CT ---
Date of service: 02/08/2018 PROCEDURE: CT HEAD WITHOUT CONTRAST. HISTORY: fall, r/o bleed COMPARISON: 06/24/2017 TECHNIQUE: Axial computed tomography images were obtained through the head/brain without intravenous contrast. Radiation dose: Total exam DLP = 941 mGy-cm. This CT exam was performed using one or more of the following dose reduction techniques: Automated exposure control, adjustment of the mA and/or kV according to patient size, and/or use of iterative reconstruction technique. FINDINGS: HEMORRHAGE: No intracranial hemorrhage. BRAIN: No mass effect or edema. No atrophy or chronic microvascular ischemic changes. VENTRICLES: Unremarkable. No hydrocephalus. CALVARIUM: Unremarkable. PARANASAL SINUSES: Unremarkable as visualized. No significant inflammatory changes. MASTOID AIR CELLS: Unremarkable as visualized. No inflammatory changes. OTHER FINDINGS: None. IMPRESSION: No acute intracranial findings
--- NOTE | 2018-02-08 14:02 | RAD ---
Date of service: 02/08/2018 PROCEDURE: Left Wrist Radiographs. HISTORY: lt. wrist injury from fall, distal radial region COMPARISON: None. FINDINGS: BONES: Normal. No fracture. JOINTS: Normal. No dislocation. SOFT TISSUES: Normal. OTHER FINDINGS: None. IMPRESSION: Normal left wrist radiographs.
[2018-02-08 14:48] VITALS: PULSE 72
[2018-02-08 14:49] VITALS: BP 125/75; TEMP 98.4
== END 2018-02-08 14:47 | disposition home or self-care (01) ==
LOC: ED 12:16
DX: M25.532 Pain in left wrist (principal); W01.0XXA Fall on same level from slipping, tripping and stumbling without subsequent striking against object, initial encounter; Y92.009 Unspecified place in unspecified non-institutional (private) residence as the place of occurrence of the external cause